=== PATIENT | male | born 1985 | race Caucasian/White ===

== ENCOUNTER 2023-04-02 05:31 | Inpatient (IN) | payer SELFPAY ==
[2023-04-02] MEDS: Ondansetron 4 MG/2 ML SDV ONE (06:05)
[2023-04-02] MEDS: Sodium Chloride 0.9% 1,000 ML IV ONE (06:12)
[2023-04-02] MEDS: Pantoprazole 40 MG in Sodium Chloride 0.9% 100 ML IV ONE (06:18)
[2023-04-02 06:34] LABS: BASOPHILS PERCENT AUTO 0.1 % (0.0-1.0); EOSINOPHILS PERCENT AUTO 0.3 % (0.0-6.0); HEMATOCRIT 37.1 % (42.0-52.0); HEMOGLOBIN 13.5 gm/dl (14.0-18.0); IMMATURE GRAN ABSOLUTE AUTO 0.11 K/mm3 (0.00-0.05); IMMATURE GRAN PERCENT AUTO 1.3 % (0.0-0.4); LYMPHOCYTES PERCENT AUTO 11.9 % (24.0-44.0); MEAN CORPUSCULAR HEMOGLOBIN 29.7 pg (28.0-32.0); MEAN CORPUSCULAR HGB CONC 36.4 g/dl (32.0-36.0); MEAN CORPUSCULAR VOLUME 81.5 fl (83.0-99.0); MEAN PLATELET VOLUME 12.3 fl (9.4-12.4); MONOCYTES ABSOLUTE AUTO 0.8 K/mm3 (0.0-0.8); NEUTROPHILS ABSOLUTE AUTO 6.7 K/mm3 (1.8-7.7); NEUTROPHILS PERCENT AUTO 77.4 % (41.0-71.0); NRBC ABSOLUTE 0.04 (0.00-0.02); NRBC PERCENT 0.5 % (0.0-0.2); PLATELET COUNT,PLT 87 K/mm3 (150-400); RED BLOOD CELL COUNT 4.55 M/mm3 (4.52-5.90); WHITE BLOOD CELL COUNT,WBC 8.71 K/mm3 (3.9-11.3)
[2023-04-02 06:42] LABS: INR 1.06; PROTHROMBIN TIME 11.3 SECONDS (9.7-12.0)
[2023-04-02 06:44] LABS: PTT,PARTIAL THROMBOPLSTIN TIME 23.4 SECONDS (21.7-31.4)
[2023-04-02 06:49] LABS: ALANINE AMINOTRANSFERASE,ALT 120 U/L (16-63); ALBUMIN 4.2 g/dl (3.4-5.0); ALKALINE PHOSPHATASE 126 U/L (46-116); ANION GAP 21.5 (5-15); ASPARTATE AMNIOTRANSFERASE,AST 151 U/L (15-37); BILIRUBIN TOTAL 2.2 mg/dL (0.2-1.0); BLOOD UREA NITROGEN,BUN 19 mg/dL (7-18); BUN/CREATININE RATIO 14.6 (14-18); CALCIUM 9.3 mg/dL (8.5-10.1); CARBON DIOXIDE,CO2 27 mEq/L (21-32); CHLORIDE,CL 83 mEq/L (98-107); CREATININE 1.3 mg/dL (0.7-1.3); ESTIMATED GFR 73 mL/min (>60); GLUCOSE RANDOM 113 mg/dL (70-99); MAGNESIUM 1.1 mg/dL (1.8-2.4); PROTEIN TOTAL,TP 8.6 g/dl (6.4-8.2); SODIUM,NA 129 mEq/L (136-145)
[2023-04-02 07:03] LABS: POTASSIUM,K 2.5 mEq/L (3.5-5.1)
[2023-04-02 07:09] LABS: APPEARANCE,URINE SLT CLOUDY (Clear); BILIRUBIN,URINE 2+ (Negative); COLOR,URINE ORANGE (Yellow); GLUCOSE,URINE NEGATIVE (Negative); KETONES,URINE 2+ (Negative); LEUKOCYTE ESTERASE,URINE NEGATIVE (Negative); NITRITE,URINE NEGATIVE (Negative); OCCULT BLOOD,URINE TRACE-LYSED (Negative); PH,URINE 7.5 (5.0-8.0); PROTEIN,URINE 3+ (Negative); UROBILINOGEN,URINE >=8.0 (0.2-1.0)
[2023-04-02 07:28] LABS: AMORPHOUS SEDIMENT,URINE FEW /hpf (NOT SEEN); BACTERIA,URINE FEW /hpf (FEW); EPITHELIAL CELLS,URINE 0-5 /hpf (0-5); MUCUS,URINE MANY /hpf (FEW); WBC,URINE 0-5 /hpf (0-5)
[2023-04-02 07:29] LABS: BARBITURATE SCREEN,URINE NEGATIVE (CUTOFF=200); BENZODIAZEPINES SCREEN,URINE NEGATIVE (CUTOFF=150); BUPRENORPHINE SCREEN,URINE NEGATIVE (CUTOFF=10); METHADONE SCREEN, URINE NEGATIVE (CUT0FF=200); METHAMPHETAMINES SCREEN, URINE NEGATIVE (CUTOFF=500); OXYCODONE SCREEN,URINE NEGATIVE (CUT0FF=100); THC SCREEN,URINE 20 NG/ML NEGATIVE (CUTOFF=50)
[2023-04-02] MEDS: NS + KCl 20mEq/L 1,000 ML IV SCH (07:32)
[2023-04-02 07:33] LABS: SLIDE REVIEW ABNORMAL SMEAR
[2023-04-02] MEDS: Potassium Chloride 10 MEQ in Premix Bag 1 BAG IV STA (07:33)
[2023-04-02 07:34] LABS: AMPHETAMINES SCREEN, URINE NEGATIVE (CUTOFF=500)
[2023-04-02] MEDS: Metoclopramide 10 MG/2 ML SDV IVPUSH ONE (07:35)
[2023-04-02] MEDS: LORazepam 2 MG/ML SDV IVPUSH ONE (07:57)
[2023-04-02] MEDS: Magnesium Sulfate/Water 2 GM in Premix Bag 1 BAG IV ONE (08:50)
[2023-04-02] MEDS: chlordiazePOXIDE 10 MG Cap PO ONE (08:50)
[2023-04-02] MEDS: diphenhydrAMINE 50 MG/ML SDV IVPUSH ONE (09:27)
[2023-04-02] MEDS ORDERED: Lactated Ringers 1,000 ML IV SCH (10:00)
[2023-04-02 10:29] LABS: MAGNESIUM 1.4 mg/dL (1.8-2.4); PHOSPHORUS 1.9 mg/dL (2.6-4.7)
[2023-04-02] MEDS ORDERED: 50% Dextrose in Water 50 ML Syringe IVPUSH PRN (11:54)
[2023-04-02] MEDS ORDERED: Glucagon,Human Recombinant 1 MG Vial IM PRN (11:54)
[2023-04-02] MEDS: Ondansetron 4 MG/2 ML SDV IV PRN (13:09)
[2023-04-02] MEDS: Phosphorus #1 250 MG Tab PO ONE (13:10)
[2023-04-02] MEDS: chlordiazePOXIDE 25 MG Cap PO SCH ×2 (13:10→16:02)
[2023-04-02] MEDS: Pantoprazole 40 MG Tab.CR PO SCH (13:14)
[2023-04-02] MEDS: LORazepam 2 MG/ML SDV IV PRN (16:03)
[2023-04-02 16:12] LABS: HEMATOCRIT 28.9 % (42.0-52.0); HEMOGLOBIN 10.1 gm/dl (14.0-18.0)
[2023-04-02] MEDS: Acetaminophen 325 MG Tab PO PRN (18:09)
[2023-04-02] MEDS: Insulin Lispro 100 Unit/ML 3 ML KwikPen SUBCUT SCH (19:28)
[2023-04-03 00:33] LABS: HEMATOCRIT 27.6 % (42.0-52.0); HEMOGLOBIN 9.4 gm/dl (14.0-18.0)
[2023-04-03] MEDS: traZODone 50 MG Tab PO ONE (01:32)
[2023-04-03] MEDS: Sodium Chloride 0.9% 1,000 ML IV SCH (04:19)
[2023-04-03 06:17] LABS: BASOPHILS PERCENT AUTO 0.2 % (0.0-1.0); EOSINOPHILS PERCENT AUTO 0.9 % (0.0-6.0); HEMATOCRIT 27.4 % (42.0-52.0); HEMOGLOBIN 9.6 gm/dl (14.0-18.0); IMMATURE GRAN ABSOLUTE AUTO 0.05 K/mm3 (0.00-0.05); IMMATURE GRAN PERCENT AUTO 1.2 % (0.0-0.4); LYMPHOCYTES ABSOLUTE AUTO 1.5 K/mm3 (1.0-4.8); LYMPHOCYTES PERCENT AUTO 35.5 % (24.0-44.0); MEAN CORPUSCULAR HEMOGLOBIN 29.4 pg (28.0-32.0); MEAN CORPUSCULAR VOLUME 83.8 fl (83.0-99.0); MEAN PLATELET VOLUME 11.2 fl (9.4-12.4); MONOCYTES ABSOLUTE AUTO 0.4 K/mm3 (0.0-0.8); MONOCYTES PERCENT AUTO 10.4 % (0.0-8.0); NEUTROPHILS ABSOLUTE AUTO 2.2 K/mm3 (1.8-7.7); NEUTROPHILS PERCENT AUTO 51.8 % (41.0-71.0); NRBC ABSOLUTE 0.02 (0.00-0.02); NRBC PERCENT 0.5 % (0.0-0.2); PLATELET COUNT,PLT 70 K/mm3 (150-400); RED BLOOD CELL COUNT 3.27 M/mm3 (4.52-5.90); WHITE BLOOD CELL COUNT,WBC 4.25 K/mm3 (3.9-11.3)
[2023-04-03 06:22] LABS: ALBUMIN 3.3 g/dl (3.4-5.0); ANION GAP 13.9 (5-15); BILIRUBIN TOTAL 1.1 mg/dL (0.2-1.0); BUN/CREATININE RATIO 11.5 (14-18); CALCIUM 8.2 mg/dL (8.5-10.1); CREATININE 1.3 mg/dL (0.7-1.3); EST CRCL DRUG DOSING (CG) 87.05 mL/min; POTASSIUM,K 2.9 mEq/L (3.5-5.1); PROTEIN TOTAL,TP 6.6 g/dl (6.4-8.2)
[2023-04-03 07:10] LABS: SLIDE REVIEW ABNORMAL SMEAR
[2023-04-03] MEDS: Potassium Chloride 10 MEQ in Premix Bag 1 BAG IV ONE ×2 (09:30→10:36)
[2023-04-03] MEDS: Folic Acid 1 MG Tab PO SCH (09:31)
[2023-04-03] MEDS: Ondansetron 4 MG Tab.DIS PO PRN (09:32)
[2023-04-03] MEDS: Thiamine 100 MG Tab PO SCH (09:32)
[2023-04-03] MEDS: LORazepam 1 MG Tab PO PRN (09:32)
[2023-04-03] MEDS: chlordiazePOXIDE 25 MG Cap PO SCH (15:55)
[2023-04-04] MEDS: Lisinopril 10 MG Tab PO SCH (08:58)
[2023-04-04 09:28] LABS: BASOPHILS PERCENT AUTO 0.8 % (0.0-1.0); EOSINOPHILS ABSOLUTE AUTO 0.1 K/mm3 (0.0-0.4); EOSINOPHILS PERCENT AUTO 2.8 % (0.0-6.0); HEMATOCRIT 26.9 % (42.0-52.0); HEMOGLOBIN 8.8 gm/dl (14.0-18.0); IMMATURE GRAN ABSOLUTE AUTO 0.09 K/mm3 (0.00-0.05); IMMATURE GRAN PERCENT AUTO 2.3 % (0.0-0.4); LYMPHOCYTES ABSOLUTE AUTO 1.3 K/mm3 (1.0-4.8); LYMPHOCYTES PERCENT AUTO 31.7 % (24.0-44.0); MEAN CORPUSCULAR HEMOGLOBIN 28.9 pg (28.0-32.0); MEAN CORPUSCULAR HGB CONC 32.7 g/dl (32.0-36.0); MEAN CORPUSCULAR VOLUME 88.5 fl (83.0-99.0); MONOCYTES ABSOLUTE AUTO 0.6 K/mm3 (0.0-0.8); MONOCYTES PERCENT AUTO 14.6 % (0.0-8.0); NEUTROPHILS ABSOLUTE AUTO 1.9 K/mm3 (1.8-7.7); NEUTROPHILS PERCENT AUTO 47.8 % (41.0-71.0); NRBC ABSOLUTE 0.02 (0.00-0.02); NRBC PERCENT 0.5 % (0.0-0.2); PLATELET COUNT,PLT 100 K/mm3 (150-400); RED BLOOD CELL COUNT 3.04 M/mm3 (4.52-5.90); WHITE BLOOD CELL COUNT,WBC 3.98 K/mm3 (3.9-11.3)
[2023-04-04 09:46] LABS: ANION GAP 13.6 (5-15); BUN/CREATININE RATIO 8.2 (14-18); CALCIUM 9.2 mg/dL (8.5-10.1); CREATININE 1.1 mg/dL (0.7-1.3); EST CRCL DRUG DOSING (CG) 102.88 mL/min; POTASSIUM,K 3.6 mEq/L (3.5-5.1)
[2023-04-04] MEDS: Potassium Chloride 10 MEQ in Premix Bag 1 BAG IV SCH (10:33)
[2023-04-04] MEDS: chlordiazePOXIDE 25 MG Cap PO SCH (12:09)
[2023-04-04] MEDS: QUEtiapine 100 MG Tab PO SCH (13:30)
[2023-04-04] MEDS: Venlafaxine 75 MG Cap.ER PO SCH (13:31)
[2023-04-04 14:28] LABS: CREATININE,URINE RAND 14.8 mg/dL (30.0-125.0)
[2023-04-04 14:29] LABS: PROTEIN,URINE RANDOM < 6.0 mg/dL (0.0-11.8)
[2023-04-04] MEDS: Hydrochlorothiazide 12.5 MG Cap PO SCH (21:04)
[2023-04-05 05:37] LABS: BASOPHILS PERCENT AUTO 0.8 % (0.0-1.0); EOSINOPHILS ABSOLUTE AUTO 0.1 K/mm3 (0.0-0.4); EOSINOPHILS PERCENT AUTO 3.1 % (0.0-6.0); HEMATOCRIT 27.4 % (42.0-52.0); HEMOGLOBIN 9.1 gm/dl (14.0-18.0); IMMATURE GRAN ABSOLUTE AUTO 0.08 K/mm3 (0.00-0.05); IMMATURE GRAN PERCENT AUTO 2.2 % (0.0-0.4); LYMPHOCYTES ABSOLUTE AUTO 1.5 K/mm3 (1.0-4.8); LYMPHOCYTES PERCENT AUTO 43.3 % (24.0-44.0); MEAN CORPUSCULAR HEMOGLOBIN 28.5 pg (28.0-32.0); MEAN CORPUSCULAR HGB CONC 33.2 g/dl (32.0-36.0); MEAN CORPUSCULAR VOLUME 85.9 fl (83.0-99.0); MEAN PLATELET VOLUME 9.8 fl (9.4-12.4); MONOCYTES ABSOLUTE AUTO 0.6 K/mm3 (0.0-0.8); NEUTROPHILS ABSOLUTE AUTO 1.2 K/mm3 (1.8-7.7); NEUTROPHILS PERCENT AUTO 34.6 % (41.0-71.0); PLATELET COUNT,PLT 132 K/mm3 (150-400); RED BLOOD CELL COUNT 3.19 M/mm3 (4.52-5.90); WHITE BLOOD CELL COUNT,WBC 3.56 K/mm3 (3.9-11.3)
[2023-04-05 06:07] LABS: ANION GAP 14.1 (5-15); EST CRCL DRUG DOSING (CG) 113.17 mL/min; POTASSIUM,K 3.1 mEq/L (3.5-5.1)
[2023-04-05] MEDS: Potassium Chloride 20 MEQ Tab.ER PO SCH (08:19)
[2023-04-05] MEDS: Magnesium Oxide 400 MG Tab PO ONE (13:18)
[2023-04-05] MEDS ORDERED: chlordiazePOXIDE 25 MG Cap PO SCH (21:00)
== END 2023-04-05 13:30 | disposition home or self-care (01) | DRG 897 ==
LOC: JD.ED 05:31 → JD.ICU 09:50 → JD.ED 11:42
PROVIDERS: ADMIT Student in an Organized Health Care Education/Training Program; ATTEND Internal Medicine
DX: F10.239 Alcohol dependence with withdrawal, unspecified (principal); K92.0 Hematemesis; E87.1 Hypo-osmolality and hyponatremia; E87.3 Alkalosis; N17.9 Acute kidney failure, unspecified; E11.9 Type 2 diabetes mellitus without complications; F32.A Depression, unspecified; E87.8 Other disorders of electrolyte and fluid balance, not elsewhere classified; E87.6 Hypokalemia; E83.42 Hypomagnesemia; D69.6 Thrombocytopenia, unspecified; F41.9 Anxiety disorder, unspecified; I10 Essential (primary) hypertension; E83.39 Other disorders of phosphorus metabolism; K29.20 Alcoholic gastritis without bleeding; Z79.4 Long term (current) use of insulin; Z79.899 Other long term (current) drug therapy; Z79.84 Long term (current) use of oral hypoglycemic drugs
CPT/HCPCS: 36415; 76705; 76705-26; 80048; 80053; 80306; 80307; 81001; 82570; 82947; 83735; 84100; 84132; 84156; 85014; 85018; 85025; 85610; 85652; 85730; 86140; 86430; 86850; 86900; 86901; 93970; 93970-26; 96361; 96365; 96366; 96367; 96368; 96375; 97162-GP; 99285-25; A9270-GY; C9113; J1200; J2060; J2405; J2765; J3475; J3480; J3490; J7030

== ENCOUNTER 2023-04-11 06:22 | Inpatient (IN) | payer OTHER ==
[2023-04-11 07:48] LABS: APPEARANCE,URINE CLEAR (Clear); BILIRUBIN,URINE NEGATIVE (Negative); COLOR,URINE YELLOW (Yellow); GLUCOSE,URINE NEGATIVE (Negative); KETONES,URINE NEGATIVE (Negative); LEUKOCYTE ESTERASE,URINE NEGATIVE (Negative); NITRITE,URINE NEGATIVE (Negative); OCCULT BLOOD,URINE NEGATIVE (Negative); PH,URINE 7.5 (5.0-8.0); PROTEIN,URINE TRACE (Negative)
[2023-04-11] MEDS: Sodium Chloride 0.9% 1,000 ML IV ONE (07:52)
[2023-04-11] MEDS: Pantoprazole 40 MG Vial IVPUSH ONE (07:52)
[2023-04-11] MEDS: Ondansetron 4 MG/2 ML SDV IVPUSH ONE (07:53)
[2023-04-11 07:55] LABS: INR 0.97; PROTHROMBIN TIME 10.4 SECONDS (9.7-12.0)
[2023-04-11 07:57] LABS: A/G RATIO 1.1 (1-2); ALANINE AMINOTRANSFERASE,ALT 145 U/L (16-63); ALBUMIN 4.3 g/dl (3.4-5.0); ALKALINE PHOSPHATASE 115 U/L (46-116); ANION GAP 19.4 (5-15); ASPARTATE AMNIOTRANSFERASE,AST 65 U/L (15-37); BILIRUBIN TOTAL 0.7 mg/dL (0.2-1.0); BLOOD UREA NITROGEN,BUN 9 mg/dL (7-18); BUN/CREATININE RATIO 7.5 (14-18); CALCIUM 9.1 mg/dL (8.5-10.1); CARBON DIOXIDE,CO2 25 mEq/L (21-32); CREATININE 1.2 mg/dL (0.7-1.3); ESTIMATED GFR 81 mL/min (>60); GLUCOSE RANDOM 78 mg/dL (70-99); MAGNESIUM 0.9 mg/dL (1.8-2.4); POTASSIUM,K 3.4 mEq/L (3.5-5.1); PROTEIN TOTAL,TP 8.3 g/dl (6.4-8.2); PTT,PARTIAL THROMBOPLSTIN TIME < 20.0 SECONDS (21.7-31.4)
[2023-04-11 07:58] LABS: BARBITURATE SCREEN,URINE NEGATIVE (CUTOFF=200); BENZODIAZEPINES SCREEN,URINE PRESUMPTIVE POSITIVE (CUTOFF=150); BUPRENORPHINE SCREEN,URINE NEGATIVE (CUTOFF=10); METHADONE SCREEN, URINE NEGATIVE (CUT0FF=200); METHAMPHETAMINES SCREEN, URINE NEGATIVE (CUTOFF=500); OXYCODONE SCREEN,URINE NEGATIVE (CUT0FF=100); THC SCREEN,URINE 20 NG/ML NEGATIVE (CUTOFF=50)
[2023-04-11 08:06] LABS: AMPHETAMINES SCREEN, URINE NEGATIVE (CUTOFF=500); BACTERIA,URINE RARE /hpf (FEW); EPITHELIAL CELLS,URINE 0-5 /hpf (0-5); MUCUS,URINE RARE /hpf (FEW); RBC,URINE 0-5 /hpf (0-5); WBC,URINE 0-5 /hpf (0-5)
[2023-04-11 08:08] LABS: CHLORIDE,CL 93 mEq/L (98-107); SODIUM,NA 134 mEq/L (136-145)
[2023-04-11 08:43] LABS: BASOPHILS ABSOLUTE AUTO 0.1 K/mm3 (0.0-0.2); BASOPHILS PERCENT AUTO 1.2 % (0.0-1.0); HEMATOCRIT 29.6 % (42.0-52.0); HEMOGLOBIN 10.2 gm/dl (14.0-18.0); IMMATURE GRAN ABSOLUTE AUTO 0.03 K/mm3 (0.00-0.05); IMMATURE GRAN PERCENT AUTO 0.5 % (0.0-0.4); LYMPHOCYTES ABSOLUTE AUTO 0.8 K/mm3 (1.0-4.8); LYMPHOCYTES PERCENT AUTO 11.6 % (24.0-44.0); MEAN CORPUSCULAR HGB CONC 34.5 g/dl (32.0-36.0); MEAN PLATELET VOLUME 8.6 fl (9.4-12.4); MONOCYTES ABSOLUTE AUTO 1.6 K/mm3 (0.0-0.8); MONOCYTES PERCENT AUTO 24.1 % (0.0-8.0); NEUTROPHILS PERCENT AUTO 62.6 % (41.0-71.0); RED BLOOD CELL COUNT 3.52 M/mm3 (4.52-5.90); WHITE BLOOD CELL COUNT,WBC 6.46 K/mm3 (3.9-11.3)
[2023-04-11 08:45] LABS: MEAN CORPUSCULAR VOLUME 84.1 fl (83.0-99.0); PLATELET COUNT,PLT 420 K/mm3 (150-400)
[2023-04-11 09:12] LABS: SLIDE REVIEW ABNORMAL SMEAR
[2023-04-11] MEDS: Magnesium Sulfate/Water 2 GM in Premix Bag 1 BAG IV ONE (09:55)
[2023-04-11] MEDS ORDERED: LORazepam 2 MG/ML SDV IVPUSH PRN ×2 (10:17→17:46)
[2023-04-11] MEDS ORDERED: Magnesium Sulfate (4.06 MEQ/ML) 5 GM/10 ML SDV IV ONE (10:20)
[2023-04-11] MEDS ORDERED: 50% Dextrose in Water 50 ML Syringe IVPUSH PRN (10:41)
[2023-04-11] MEDS ORDERED: Glucagon,Human Recombinant 1 MG Vial IM PRN (10:41)
[2023-04-11] MEDS: Lactated Ringers 1,000 ML IV SCH (12:36)
[2023-04-11] MEDS: Magnesium Sulfate/Water 2 GM in Premix Bag 1 BAG IV SCH (12:36)
[2023-04-11] MEDS: Potassium Chloride 20 MEQ Tab.ER PO ONE (12:36)
[2023-04-11] MEDS: Ondansetron 4 MG/2 ML SDV IV PRN (12:36)
[2023-04-11] MEDS: Insulin Lispro 100 Unit/ML 3 ML KwikPen SUBCUT SCH (12:39)
[2023-04-11] MEDS: Acetaminophen 325 MG Tab PO PRN (13:56)
[2023-04-11] MEDS: chlordiazePOXIDE 25 MG Cap PO SCH (14:00)
[2023-04-11] MEDS: LORazepam 0.5 MG Tab PO ONE (15:55)
[2023-04-11] MEDS: Insulin Glargine,Human Rec. Analog 100 Units/ML 3 ML Pen SUBCUT SCH (22:40)
[2023-04-12 06:33] LABS: BASOPHILS ABSOLUTE AUTO 0.1 K/mm3 (0.0-0.2); BASOPHILS PERCENT AUTO 1.5 % (0.0-1.0); EOSINOPHILS ABSOLUTE AUTO 0.1 K/mm3 (0.0-0.4); HEMOGLOBIN 10.5 gm/dl (14.0-18.0); IMMATURE GRAN ABSOLUTE AUTO 0.01 K/mm3 (0.00-0.05); IMMATURE GRAN PERCENT AUTO 0.2 % (0.0-0.4); LYMPHOCYTES ABSOLUTE AUTO 1.2 K/mm3 (1.0-4.8); MEAN CORPUSCULAR HEMOGLOBIN 28.4 pg (28.0-32.0); MEAN CORPUSCULAR HGB CONC 31.8 g/dl (32.0-36.0); MEAN CORPUSCULAR VOLUME 89.2 fl (83.0-99.0); MEAN PLATELET VOLUME 8.7 fl (9.4-12.4); MONOCYTES ABSOLUTE AUTO 0.6 K/mm3 (0.0-0.8); MONOCYTES PERCENT AUTO 13.3 % (0.0-8.0); NEUTROPHILS ABSOLUTE AUTO 2.8 K/mm3 (1.8-7.7); PLATELET COUNT,PLT 435 K/mm3 (150-400)
[2023-04-12 07:04] LABS: INR 0.96; PROTHROMBIN TIME 10.3 SECONDS (9.7-12.0)
[2023-04-12 07:05] LABS: ALBUMIN 3.8 g/dl (3.4-5.0); ANION GAP 15.7 (5-15); BILIRUBIN TOTAL 0.7 mg/dL (0.2-1.0); CALCIUM 9.3 mg/dL (8.5-10.1); CREATININE 1.2 mg/dL (0.7-1.3); EST CRCL DRUG DOSING (CG) 94.31 mL/min; MAGNESIUM 1.9 mg/dL (1.8-2.4); POTASSIUM,K 4.7 mEq/L (3.5-5.1); PROTEIN TOTAL,TP 7.5 g/dl (6.4-8.2)
[2023-04-12] MEDS: Pantoprazole 40 MG Tab.CR PO SCH (08:03)
[2023-04-12] MEDS: QUEtiapine 100 MG Tab PO SCH (08:03)
[2023-04-12] MEDS: Thiamine 100 MG Tab PO SCH (08:03)
[2023-04-12] MEDS: Venlafaxine 75 MG Cap.ER PO SCH (08:03)
[2023-04-12] MEDS: Hydrochlorothiazide 12.5 MG Cap PO SCH (09:10)
[2023-04-12] MEDS: Lisinopril 10 MG Tab PO SCH (09:10)
[2023-04-12] MEDS: Sennosides/Docusate Sodium 50-8.6 MG Tab PO SCH (15:23)
[2023-04-12] MEDS: Gabapentin 100 MG Cap PO SCH (15:36)
[2023-04-12] MEDS: LORazepam 1 MG Tab PO PRN (16:10)
[2023-04-12] MEDS: Cholecalciferol (Vitamin D3) 25 MCG Tab PO SCH (20:34)
[2023-04-12] MEDS: Vitamin B6-pyridOXINE 50 MG Tab PO SCH (20:34)
[2023-04-12] MEDS: Magnesium Oxide 400 MG Tab PO SCH (20:34)
[2023-04-12] MEDS: chlordiazePOXIDE 25 MG Cap PO SCH (20:34)
[2023-04-12] MEDS: Cyanocobalamin (Vitamin B12) 1,000 MCG Tab PO SCH (20:34)
[2023-04-13 05:22] LABS: INR 0.95; PROTHROMBIN TIME 10.2 SECONDS (9.7-12.0)
[2023-04-13 05:35] LABS: BASOPHILS ABSOLUTE AUTO 0.1 K/mm3 (0.0-0.2); BASOPHILS PERCENT AUTO 1.8 % (0.0-1.0); EOSINOPHILS ABSOLUTE AUTO 0.1 K/mm3 (0.0-0.4); HEMATOCRIT 28.4 % (42.0-52.0); HEMOGLOBIN 9.1 gm/dl (14.0-18.0); IMMATURE GRAN ABSOLUTE AUTO 0.03 K/mm3 (0.00-0.05); IMMATURE GRAN PERCENT AUTO 0.8 % (0.0-0.4); LYMPHOCYTES ABSOLUTE AUTO 1.3 K/mm3 (1.0-4.8); MEAN CORPUSCULAR HEMOGLOBIN 28.3 pg (28.0-32.0); MEAN CORPUSCULAR VOLUME 88.5 fl (83.0-99.0); MEAN PLATELET VOLUME 9.7 fl (9.4-12.4); MONOCYTES ABSOLUTE AUTO 0.5 K/mm3 (0.0-0.8); MONOCYTES PERCENT AUTO 13.8 % (0.0-8.0); NEUTROPHILS ABSOLUTE AUTO 1.9 K/mm3 (1.8-7.7); NEUTROPHILS PERCENT AUTO 49.6 % (41.0-71.0); PLATELET COUNT,PLT 349 K/mm3 (150-400); RED BLOOD CELL COUNT 3.21 M/mm3 (4.52-5.90); WHITE BLOOD CELL COUNT,WBC 3.91 K/mm3 (3.9-11.3)
[2023-04-13 05:43] LABS: ALBUMIN 3.3 g/dl (3.4-5.0); ANION GAP 14.9 (5-15); BILIRUBIN TOTAL 0.4 mg/dL (0.2-1.0); BUN/CREATININE RATIO 8.2 (14-18); CALCIUM 9.2 mg/dL (8.5-10.1); CREATININE 1.1 mg/dL (0.7-1.3); EST CRCL DRUG DOSING (CG) 102.88 mL/min; MAGNESIUM 1.5 mg/dL (1.8-2.4); POTASSIUM,K 3.9 mEq/L (3.5-5.1); PROTEIN TOTAL,TP 6.7 g/dl (6.4-8.2)
[2023-04-13] MEDS: Magnesium Sulfate/Water 2 GM in Premix Bag 1 BAG IV ONE (07:54)
[2023-04-13] MEDS: Folic Acid 1 MG Tab PO SCH (07:57)
[2023-04-13] MEDS ORDERED: QUEtiapine 100 MG Tab PO SCH (21:00)
[2023-04-14] MEDS ORDERED: chlordiazePOXIDE 25 MG Cap PO SCH (09:00)
== END 2023-04-13 13:31 | disposition home or self-care (01) | DRG 897 ==
LOC: JD.ED 06:22 → JD.MS 09:58 → OBSVTOIN 04-12 19:27
PROVIDERS: ADMIT Student in an Organized Health Care Education/Training Program; ATTEND Student in an Organized Health Care Education/Training Program
DX: F10.230 Alcohol dependence with withdrawal, uncomplicated (principal); F32.2 Major depressive disorder, single episode, severe without psychotic features; E87.1 Hypo-osmolality and hyponatremia; E83.42 Hypomagnesemia; K70.10 Alcoholic hepatitis without ascites; R53.1 Weakness; I10 Essential (primary) hypertension; F41.9 Anxiety disorder, unspecified; F32.A Depression, unspecified; E10.9 Type 1 diabetes mellitus without complications; K21.9 Gastro-esophageal reflux disease without esophagitis; F43.10 Post-traumatic stress disorder, unspecified; E87.6 Hypokalemia; D75.839 Thrombocytosis, unspecified; R79.89 Other specified abnormal findings of blood chemistry; G47.33 Obstructive sleep apnea (adult) (pediatric); Z79.4 Long term (current) use of insulin; Z79.84 Long term (current) use of oral hypoglycemic drugs; Z79.899 Other long term (current) drug therapy; Z87.81 Personal history of (healed) traumatic fracture; Z90.49 Acquired absence of other specified parts of digestive tract
CPT/HCPCS: 36415; 80053; 80306; 80307; 81001; 82947; 83735; 84100; 85025; 85610; 85730; 90792-GT; 93005; A9270-GY; C9113; J1815; J1815-GY; J2405; J3475; J7030; J7120; Q3014

== ENCOUNTER 2023-07-21 13:33 | Inpatient (IN) | payer BC, OTHER ==
[2023-07-21 14:10] LABS: HEMATOCRIT 37.7 % (42.0-52.0); HEMOGLOBIN 11.4 gm/dl (14.0-18.0); MEAN CORPUSCULAR HEMOGLOBIN 22.1 pg (28.0-32.0); MEAN CORPUSCULAR HGB CONC 30.2 g/dl (32.0-36.0); MEAN CORPUSCULAR VOLUME 72.9 fl (83.0-99.0); MEAN PLATELET VOLUME 8.9 fl (9.4-12.4); PLATELET COUNT,PLT 283 K/mm3 (150-400); RED BLOOD CELL COUNT 5.17 M/mm3 (4.52-5.90); WHITE BLOOD CELL COUNT,WBC 4.64 K/mm3 (3.9-11.3)
[2023-07-21] MEDS: LORazepam 2 MG/ML SDV IVPUSH ONE ×2 (14:26→17:25)
[2023-07-21] MEDS: Ondansetron 4 MG/2 ML SDV IVPUSH ONE (14:27)
[2023-07-21] MEDS: Sodium Chloride 0.9% 1,000 ML IV STA ×3 (14:28→16:41)
[2023-07-21] MEDS: Sodium Chloride 0.9% 10 ML Syringe FLUSH PRN (14:28)
[2023-07-21 14:33] LABS: ANISOCYTOSIS 1+ SLIGHT; BAND PERCENT MAN 0 % (0-10); BASOPHILS PERCENT MAN 1 (0.2-1.2); EOSINOPHILS PERCENT MAN 0 % (0.8-7.0); LYMPHOCYTES % ATYPICAL MANUAL 0 %; LYMPHOCYTES PERCENT MAN 8 % (20-40); MICROCYTOSIS 1+ SLIGHT; MONOCYTES PERCENT MAN 5 % (2-10); OVALOCYTES 1+ SLIGHT; PLATELET COUNT ESTIMATE ADEQUATE
[2023-07-21 14:42] LABS: ANION GAP 23.4 (5-15); BILIRUBIN TOTAL 0.3 mg/dL (0.2-1.0); BUN/CREATININE RATIO 7.5 (14-18); CALCIUM 9.5 mg/dL (8.5-10.1); CREATININE 1.6 mg/dL (0.7-1.3); EST CRCL DRUG DOSING (CG) 70.73 mL/min; ETHANOL BLOOD MEDICAL 0.17 gm% (0.00); POTASSIUM,K 3.4 mEq/L (3.5-5.1); PROTEIN TOTAL,TP 8.1 g/dl (6.4-8.2); TSH 0.826 uIU/mL (0.358-3.74)
[2023-07-21 15:23] LABS: BASE EXCESS VENOUS -4.5 (-4.0-2.0); BICARBONATE,VENOUS 18.3 meq/L (22-26); O2 SATURATION VENOUS 86.4; PCO2 VENOUS 27.6 mmHg (41-51); PH,VENOUS 7.44 (7.30-7.40)
[2023-07-21 16:32] LABS: APPEARANCE,URINE CLEAR (Clear); BILIRUBIN,URINE 1+ (Negative); COLOR,URINE YELLOW (Yellow); GLUCOSE,URINE NEGATIVE (Negative); KETONES,URINE 2+ (Negative); LEUKOCYTE ESTERASE,URINE NEGATIVE (Negative); NITRITE,URINE NEGATIVE (Negative); OCCULT BLOOD,URINE TRACE-INTACT (Negative); PROTEIN,URINE 3+ (Negative); UROBILINOGEN,URINE 0.2 (0.2-1.0)
[2023-07-21 16:54] LABS: BACTERIA,URINE MODERATE /hpf (FEW); MUCUS,URINE FEW /hpf (FEW); RBC,URINE 0-5 /hpf (0-5); SQUAMOUS EPITHELIAL CELLS,UR 0-5 /hpf (0-5); WBC,URINE 0-5 /hpf (0-5)
[2023-07-21 16:59] LABS: AMPHETAMINES SCREEN, URINE PRESUMPTIVE POSITIVE (CUTOFF=500); BARBITURATE SCREEN,URINE NEGATIVE (CUTOFF=200); BENZODIAZEPINES SCREEN,URINE NEGATIVE (CUTOFF=150); BUPRENORPHINE SCREEN,URINE NEGATIVE (CUTOFF=10); METHADONE SCREEN, URINE NEGATIVE (CUT0FF=200); METHAMPHETAMINES SCREEN, URINE NEGATIVE (CUTOFF=500); OXYCODONE SCREEN,URINE NEGATIVE (CUT0FF=100); THC SCREEN,URINE 20 NG/ML NEGATIVE (CUTOFF=50)
[2023-07-21] MEDS: Aluminum Hydroxide/Magnesium Hydroxide/Simethicone Susp 30 ML Cup PO ONE (17:25)
[2023-07-21] MEDS: Thiamine 100 MG in Sodium Chloride 0.9% 100 ML IV ONE (18:24)
[2023-07-21] MEDS: Magnesium Sulfate/Water 4 GM in Premix Bag 1 BAG IV ONE (18:30)
[2023-07-21] MEDS: Ondansetron 4 MG/2 ML SDV IV PRN (18:32)
[2023-07-21] MEDS: Pantoprazole 40 MG Vial IV SCH (18:32)
[2023-07-21] MEDS ORDERED: Calcium Carbonate 500 MG Tab.Chew PO PRN (18:55)
[2023-07-21] MEDS: Sodium Chloride 0.9% 1,000 ML IV SCH (20:08)
[2023-07-21] MEDS: LORazepam 2 MG/ML SDV IV SCH (20:19)
[2023-07-21] MEDS: Insulin Lispro 100 Unit/ML 3 ML KwikPen SUBCUT SCH (21:21)
[2023-07-21] MEDS: Gabapentin 100 MG Cap PO SCH (21:21)
[2023-07-21] MEDS: Insulin Glargine,Human Rec. Analog 100 Units/ML 3 ML Pen SUBCUT SCH (21:22)
[2023-07-21] MEDS: LORazepam 1 MG Tab PO PRN (23:56)
[2023-07-22 05:46] LABS: HEMATOCRIT 30.9 % (42.0-52.0); HEMOGLOBIN 9.2 gm/dl (14.0-18.0); MEAN CORPUSCULAR HEMOGLOBIN 21.8 pg (28.0-32.0); MEAN CORPUSCULAR HGB CONC 29.8 g/dl (32.0-36.0); MEAN CORPUSCULAR VOLUME 73.2 fl (83.0-99.0); MEAN PLATELET VOLUME 8.8 fl (9.4-12.4); PLATELET COUNT,PLT 243 K/mm3 (150-400); RED BLOOD CELL COUNT 4.22 M/mm3 (4.52-5.90); WHITE BLOOD CELL COUNT,WBC 4.55 K/mm3 (3.9-11.3)
[2023-07-22 05:57] LABS: ALBUMIN 3.1 g/dl (3.4-5.0); ANION GAP 11.2 (5-15); BILIRUBIN TOTAL 0.5 mg/dL (0.2-1.0); BUN/CREATININE RATIO 7.9 (14-18); CALCIUM 8.3 mg/dL (8.5-10.1); CREATININE 1.4 mg/dL (0.7-1.3); EST CRCL DRUG DOSING (CG) 80.83 mL/min; MAGNESIUM 1.8 mg/dL (1.8-2.4); POTASSIUM,K 3.2 mEq/L (3.5-5.1); PROTEIN TOTAL,TP 6.2 g/dl (6.4-8.2)
[2023-07-22] MEDS: Potassium Chloride 20 MEQ Tab.ER PO SCH (08:21)
[2023-07-22] MEDS ORDERED: VENLAFAXINE 75 MG PO SCH (09:00)
[2023-07-22] MEDS: ARIPiprazole 10 MG Tab PO SCH (10:22)
[2023-07-22] MEDS: Venlafaxine 37.5 MG Cap.ER PO SCH (10:22)
[2023-07-22] MEDS: Insulin Glargine,Human Rec. Analog 100 Units/ML 3 ML Pen SUBCUT SCH (11:43)
[2023-07-22] MEDS ORDERED: hydrALAZINE 20 MG/ML SDV IVPUSH PRN (15:58)
[2023-07-22] MEDS: amLODIPine 5 MG Tab PO ONE (16:15)
[2023-07-22] MEDS: Acetaminophen 325 MG Tab PO PRN (16:19)
[2023-07-22] MEDS: Thiamine 100 MG Tab PO SCH (20:28)
[2023-07-23 06:16] LABS: HEMATOCRIT 33.3 % (42.0-52.0); HEMOGLOBIN 9.8 gm/dl (14.0-18.0); MEAN CORPUSCULAR HEMOGLOBIN 22.2 pg (28.0-32.0); MEAN CORPUSCULAR HGB CONC 29.4 g/dl (32.0-36.0); MEAN CORPUSCULAR VOLUME 75.5 fl (83.0-99.0); MEAN PLATELET VOLUME 9.2 fl (9.4-12.4); PLATELET COUNT,PLT 227 K/mm3 (150-400); RED BLOOD CELL COUNT 4.41 M/mm3 (4.52-5.90); WHITE BLOOD CELL COUNT,WBC 4.26 K/mm3 (3.9-11.3)
[2023-07-23 06:32] LABS: A/G RATIO 0.9 (1-2); ALBUMIN 3.4 g/dl (3.4-5.0); ANION GAP 11.7 (5-15); BILIRUBIN TOTAL 0.2 mg/dL (0.2-1.0); BUN/CREATININE RATIO 6.7 (14-18); CALCIUM 8.8 mg/dL (8.5-10.1); CREATININE 1.2 mg/dL (0.7-1.3); EST CRCL DRUG DOSING (CG) 93.41 mL/min; MAGNESIUM 1.5 mg/dL (1.8-2.4); POTASSIUM,K 3.7 mEq/L (3.5-5.1)
[2023-07-23] MEDS: Magnesium Sulfate/Water 4 GM in Premix Bag 1 BAG IV ONE (06:48)
[2023-07-23] MEDS: Venlafaxine 75 MG Cap.ER PO SCH (09:07)
[2023-07-23] MEDS: amLODIPine 5 MG Tab PO SCH (09:07)
[2023-07-23] MEDS: Iron Polysaccharides Complex 150 MG Cap PO SCH (09:07)
== END 2023-07-23 10:40 | disposition home or self-care (01) | DRG 775 ==
LOC: JD.ED 13:33 → JD.ICU 17:31
PROVIDERS: ADMIT Internal Medicine; ATTEND Internal Medicine
DX: F10.280 Alcohol dependence with alcohol-induced anxiety disorder (principal); F10.221 Alcohol dependence with intoxication delirium; F10.231 Alcohol dependence with withdrawal delirium; N17.9 Acute kidney failure, unspecified; K70.10 Alcoholic hepatitis without ascites; E11.9 Type 2 diabetes mellitus without complications; I10 Essential (primary) hypertension; I95.9 Hypotension, unspecified; E86.0 Dehydration; F41.9 Anxiety disorder, unspecified; E87.6 Hypokalemia; D50.9 Iron deficiency anemia, unspecified; R74.01 Elevation of levels of liver transaminase levels; K29.50 Unspecified chronic gastritis without bleeding
CPT/HCPCS: 36415; 80053; 80143; 80179; 80306; 80307; 81001; 82728; 82803; 82947; 83540; 83735; 84443; 85007; 85027; 86850; 86900; 86901; 93005; 94761; A9270-GY; C9113; J1815; J1815-GY; J2060; J2405; J3411; J3475; J3490; J7030

== ENCOUNTER 2023-07-24 13:21 | Emergency (ER) | payer BC ==
[2023-07-24] MEDS: Lisinopril 5 MG Tab PO ONE (14:41)
[2023-07-24] MEDS: LORazepam 1 MG Tab PO ONE (14:42)
[2023-07-24 16:03] LABS: BASOPHILS PERCENT AUTO 0.5 % (0.0-1.0); EOSINOPHILS ABSOLUTE AUTO 0.1 K/mm3 (0.0-0.4); EOSINOPHILS PERCENT AUTO 0.8 % (0.0-6.0); HEMATOCRIT 39.8 % (42.0-52.0); HEMOGLOBIN 11.7 gm/dl (14.0-18.0); IMMATURE GRAN ABSOLUTE AUTO 0.04 K/mm3 (0.00-0.05); IMMATURE GRAN PERCENT AUTO 0.6 % (0.0-0.4); LYMPHOCYTES ABSOLUTE AUTO 1.4 K/mm3 (1.0-4.8); MEAN CORPUSCULAR HEMOGLOBIN 22.1 pg (28.0-32.0); MEAN CORPUSCULAR HGB CONC 29.4 g/dl (32.0-36.0); MEAN CORPUSCULAR VOLUME 75.1 fl (83.0-99.0); MEAN PLATELET VOLUME 9.3 fl (9.4-12.4); MONOCYTES ABSOLUTE AUTO 0.8 K/mm3 (0.0-0.8); MONOCYTES PERCENT AUTO 12.1 % (0.0-8.0); NEUTROPHILS ABSOLUTE AUTO 4.3 K/mm3 (1.8-7.7); PLATELET COUNT,PLT 266 K/mm3 (150-400); WHITE BLOOD CELL COUNT,WBC 6.53 K/mm3 (3.9-11.3)
[2023-07-24] MEDS: LORazepam 2 MG/ML SDV IVPUSH ONE ×3 (16:06→18:40)
[2023-07-24] MEDS: Labetalol 100 MG/20 ML MDV IVPUSH ONE (16:07)
[2023-07-24 16:28] LABS: ALBUMIN 4.3 g/dl (3.4-5.0); ANION GAP 16.6 (5-15); BILIRUBIN TOTAL 0.3 mg/dL (0.2-1.0); BUN/CREATININE RATIO 11.8 (14-18); CREATININE 1.1 mg/dL (0.7-1.3); EST CRCL DRUG DOSING (CG) 101.9 mL/min; POTASSIUM,K 4.6 mEq/L (3.5-5.1); PROTEIN TOTAL,TP 8.6 g/dl (6.4-8.2)
[2023-07-24] MEDS: Sodium Chloride 0.9% 1,000 ML IV SCH (16:32)
[2023-07-24 17:51] LABS: APPEARANCE,URINE CLEAR (Clear); BILIRUBIN,URINE NEGATIVE (Negative); COLOR,URINE YELLOW (Yellow); GLUCOSE,URINE NEGATIVE (Negative); KETONES,URINE NEGATIVE (Negative); LEUKOCYTE ESTERASE,URINE NEGATIVE (Negative); NITRITE,URINE NEGATIVE (Negative); OCCULT BLOOD,URINE NEGATIVE (Negative); PROTEIN,URINE NEGATIVE (Negative); UROBILINOGEN,URINE 0.2 (0.2-1.0)
[2023-07-24 18:12] LABS: BARBITURATE SCREEN,URINE NEGATIVE (CUTOFF=200); BUPRENORPHINE SCREEN,URINE NEGATIVE (CUTOFF=10); METHADONE SCREEN, URINE NEGATIVE (CUT0FF=200); METHAMPHETAMINES SCREEN, URINE NEGATIVE (CUTOFF=500); OXYCODONE SCREEN,URINE NEGATIVE (CUT0FF=100); THC SCREEN,URINE 20 NG/ML NEGATIVE (CUTOFF=50)
[2023-07-24 18:21] LABS: AMPHETAMINES SCREEN, URINE PRESUMPTIVE POSITIVE (CUTOFF=500)
[2023-07-24 18:22] LABS: BENZODIAZEPINES SCREEN,URINE PRESUMPTIVE POSITIVE (CUTOFF=150)
[2023-07-24] MEDS: cloNIDine 0.1 MG Tab PO ONE (19:25)
[2023-07-24] MEDS: Metoprolol Succinate 25 MG Tab.ER PO ONE (19:38)
[2023-07-24] MEDS: Lactated Ringers 500 ML IV ONE (19:38)
[2023-07-24] MEDS ORDERED: cloNIDine 0.1 MG Tab PO ONE (20:39)
[2023-07-24] MEDS: Ketorolac 30 MG/ML SDV IVPUSH ONE (21:00)
== END 2023-07-24 22:12 | disposition other institution (70) ==
LOC: JD.ED 13:21
DX: I10 Essential (primary) hypertension (principal); F10.130 Alcohol abuse with withdrawal, uncomplicated; E11.9 Type 2 diabetes mellitus without complications; Z79.899 Other long term (current) drug therapy; Z90.49 Acquired absence of other specified parts of digestive tract; Y90.9 Presence of alcohol in blood, level not specified
CPT/HCPCS: 36415; 70450; 80053; 80306; 81003; 83880; 84484; 85025; 93005; 96361; 96374; 96375; 96376; 99285; A9270; J1885; J1921; J2060; J7030; J7120; 93010; 99284

== ENCOUNTER 2023-08-24 16:48 | Emergency (ER) | payer BC ==
[2023-08-24] MEDS: Sodium Chloride 0.9% 1,000 ML IV STA ×2 (17:47→18:55)
[2023-08-24 17:48] LABS: HEMOGLOBIN 14.2 gm/dl (14.0-18.0); MEAN CORPUSCULAR HEMOGLOBIN 21.9 pg (28.0-32.0); MEAN CORPUSCULAR HGB CONC 30.9 g/dl (32.0-36.0); PLATELET COUNT,PLT 352 K/mm3 (150-400); RED BLOOD CELL COUNT 6.48 M/mm3 (4.52-5.90); WHITE BLOOD CELL COUNT,WBC 9.42 K/mm3 (3.9-11.3)
[2023-08-24] MEDS: Ondansetron 4 MG/2 ML SDV IVPUSH ONE (17:57)
[2023-08-24 18:20] LABS: A/G RATIO 0.9 (1-2); ALBUMIN 4.6 g/dl (3.4-5.0); ANION GAP 36.1 (5-15); BILIRUBIN TOTAL 0.5 mg/dL (0.2-1.0); BUN/CREATININE RATIO 5.2 (14-18); CALCIUM 9.4 mg/dL (8.5-10.1); CREATININE 8.4 mg/dL (0.7-1.3); EST CRCL DRUG DOSING (CG) 13.34 mL/min; ETHANOL BLOOD MEDICAL 0.26 gm% (0.00); POTASSIUM,K 4.1 mEq/L (3.5-5.1); PROTEIN TOTAL,TP 9.8 g/dl (6.4-8.2); TSH 2.092 uIU/mL (0.358-3.74)
[2023-08-24 18:57] LABS: BAND PERCENT MAN 0 % (0-10); BASOPHILS PERCENT MAN 0 (0.2-1.2); EOSINOPHILS PERCENT MAN 0 % (0.8-7.0); LYMPHOCYTES % ATYPICAL MANUAL 0 %; LYMPHOCYTES PERCENT MAN 11 % (20-40); MONOCYTES PERCENT MAN 2 % (2-10)
[2023-08-24 18:59] LABS: ANISOCYTOSIS 2+ MODERATE; MICROCYTOSIS 2+ MODERATE; OVALOCYTES 1+ SLIGHT; POIKILOCYTOSIS 1+ SLIGHT
[2023-08-24 19:00] LABS: PLATELET COUNT ESTIMATE ADEQUATE
[2023-08-24 19:18] LABS: BASE EXCESS ARTERIAL -10.5 (-2-2.0); BICARBONATE,ARTERIAL 14.5 meq/L (22.0-26.0); O2 SATURATION ARTERIAL 92.7 % (96.0-97.0); PCO2 ARTERIAL 30.7 mmHg (35.0-45.0)
[2023-08-24] MEDS: LORazepam 2 MG/ML SDV IVPUSH ONE ×2 (19:47→20:16)
[2023-08-24] MEDS: Sodium Chloride 0.9% 1,000 ML IV ONE (20:05)
[2023-08-24] MEDS: Sodium Chloride 0.9% 1,000 ML ONE (20:05)
[2023-08-24] MEDS: Sodium Bicarbonate 150 MEQ in Dextrose 5% in Water 1,000 ML IV ONE (20:51)
[2023-08-24] MEDS: PHENobarbital Sodium 65 MG/ML SDV IVPUSH SCH (20:52)
[2023-08-24] MEDS: Insulin Regular in 0.9 % NACL 100 ML IV SCH (20:52)
[2023-08-24] MEDS ORDERED: Insulin Regular in 0.9 % NACL 100 ML IV SCH (21:08)
== END 2023-08-24 22:08 ==
LOC: JD.ED 16:48
DX: F10.20 Alcohol dependence, uncomplicated (principal); N17.9 Acute kidney failure, unspecified; E86.0 Dehydration; E87.20 Acidosis, unspecified; F17.210 Nicotine dependence, cigarettes, uncomplicated; I10 Essential (primary) hypertension; E11.9 Type 2 diabetes mellitus without complications; Z90.49 Acquired absence of other specified parts of digestive tract; Z79.899 Other long term (current) drug therapy; Z79.4 Long term (current) use of insulin; Y90.9 Presence of alcohol in blood, level not specified
CPT/HCPCS: 36415; 36600; 51702; 71045; 80053; 80143; 80179; 80307; 82803; 82947; 83735; 84443; 85007; 85027; 93005; 96361; 96365; 96375; 99285; J1815; J2060; J2405; J2560; J7030; J7060; 93010; J3490

== ENCOUNTER 2023-10-13 11:58 | Emergency (ER) | payer BC ==
[2023-10-13] MEDS: Sodium Chloride 0.9% 1,000 ML IV SCH ×2 (12:25→15:00)
[2023-10-13] MEDS: Ondansetron 4 MG/2 ML SDV IVPUSH ONE (12:34)
[2023-10-13 12:40] LABS: BASOPHILS ABSOLUTE AUTO 0.1 K/mm3 (0.0-0.2); EOSINOPHILS ABSOLUTE AUTO 0.1 K/mm3 (0.0-0.4); EOSINOPHILS PERCENT AUTO 0.8 % (0.0-6.0); HEMATOCRIT 51.5 % (42.0-52.0); HEMOGLOBIN 17.3 gm/dl (14.0-18.0); IMMATURE GRAN ABSOLUTE AUTO 0.02 K/mm3 (0.00-0.05); IMMATURE GRAN PERCENT AUTO 0.3 % (0.0-0.4); LYMPHOCYTES ABSOLUTE AUTO 2.5 K/mm3 (1.0-4.8); MEAN CORPUSCULAR HEMOGLOBIN 27.7 pg (28.0-32.0); MEAN CORPUSCULAR HGB CONC 33.6 g/dl (32.0-36.0); MEAN CORPUSCULAR VOLUME 82.4 fl (83.0-99.0); MEAN PLATELET VOLUME 8.7 fl (9.4-12.4); MONOCYTES ABSOLUTE AUTO 0.4 K/mm3 (0.0-0.8); MONOCYTES PERCENT AUTO 5.7 % (0.0-8.0); NEUTROPHILS ABSOLUTE AUTO 4.1 K/mm3 (1.8-7.7); NEUTROPHILS PERCENT AUTO 57.2 % (41.0-71.0); PLATELET COUNT,PLT 229 K/mm3 (150-400); RED BLOOD CELL COUNT 6.25 M/mm3 (4.52-5.90); WHITE BLOOD CELL COUNT,WBC 7.21 K/mm3 (3.9-11.3)
[2023-10-13 13:15] LABS: A/G RATIO 1.1 (1-2); ALBUMIN 4.3 g/dl (3.4-5.0); ANION GAP 25.5 (5-15); BILIRUBIN TOTAL 0.5 mg/dL (0.2-1.0); CALCIUM 8.7 mg/dL (8.5-10.1); EST CRCL DRUG DOSING (CG) 115.41 mL/min; ETHANOL BLOOD MEDICAL 0.44 gm% (0.00); POTASSIUM,K 3.5 mEq/L (3.5-5.1); PROTEIN TOTAL,TP 8.4 g/dl (6.4-8.2)
[2023-10-13 13:46] LABS: SLIDE REVIEW ABNORMAL SMEAR
[2023-10-13] MEDS: Pantoprazole 40 MG Vial IVPUSH ONE (16:10)
[2023-10-13 16:36] LABS: BARBITURATE SCREEN,URINE NEGATIVE (CUTOFF=200); BENZODIAZEPINES SCREEN,URINE NEGATIVE (CUTOFF=150); BUPRENORPHINE SCREEN,URINE NEGATIVE (CUTOFF=10); METHADONE SCREEN, URINE NEGATIVE (CUT0FF=200); METHAMPHETAMINES SCREEN, URINE NEGATIVE (CUTOFF=500); OXYCODONE SCREEN,URINE NEGATIVE (CUT0FF=100); THC SCREEN,URINE 20 NG/ML NEGATIVE (CUTOFF=50)
[2023-10-13 16:45] LABS: AMPHETAMINES SCREEN, URINE NEGATIVE (CUTOFF=500)
[2023-10-13] MEDS: Lactated Ringers 1,000 ML IV SCH (17:27)
[2023-10-13] MEDS: LORazepam 2 MG/ML SDV IVPUSH ONE ×2 (18:00→20:34)
[2023-10-13] MEDS: Metoprolol Tartrate 100 MG Tab PO SCH (20:35)
== END 2023-10-13 22:29 | disposition home or self-care (01) ==
LOC: JD.ED 11:58
DX: F10.121 Alcohol abuse with intoxication delirium (principal); E86.0 Dehydration; I10 Essential (primary) hypertension; E11.9 Type 2 diabetes mellitus without complications; Z79.4 Long term (current) use of insulin; Z79.899 Other long term (current) drug therapy
CPT/HCPCS: 36415; 80053; 80306; 80307; 85025; 93005; 96361; 96374; 96375; 96376; 99284; A9270; J2060; J2405; J2470; J7030; J7120; 93010

== ENCOUNTER 2023-11-02 13:09 | Inpatient (IN) | payer BC ==
[2023-11-02 14:25] LABS: BASOPHILS ABSOLUTE AUTO 0.1 K/mm3 (0.0-0.2); BASOPHILS PERCENT AUTO 1.2 % (0.0-1.0); EOSINOPHILS ABSOLUTE AUTO 0.1 K/mm3 (0.0-0.4); EOSINOPHILS PERCENT AUTO 1.4 % (0.0-6.0); HEMATOCRIT 51.7 % (42.0-52.0); HEMOGLOBIN 18.1 gm/dl (14.0-18.0); IMMATURE GRAN ABSOLUTE AUTO 0.05 K/mm3 (0.00-0.05); IMMATURE GRAN PERCENT AUTO 0.8 % (0.0-0.4); LYMPHOCYTES ABSOLUTE AUTO 2.8 K/mm3 (1.0-4.8); LYMPHOCYTES PERCENT AUTO 42.6 % (24.0-44.0); MEAN CORPUSCULAR HEMOGLOBIN 29.3 pg (28.0-32.0); MEAN CORPUSCULAR VOLUME 83.7 fl (83.0-99.0); MEAN PLATELET VOLUME 8.9 fl (9.4-12.4); MONOCYTES ABSOLUTE AUTO 0.5 K/mm3 (0.0-0.8); MONOCYTES PERCENT AUTO 7.6 % (0.0-8.0); NEUTROPHILS PERCENT AUTO 46.4 % (41.0-71.0); PLATELET COUNT,PLT 262 K/mm3 (150-400); RED BLOOD CELL COUNT 6.18 M/mm3 (4.52-5.90); WHITE BLOOD CELL COUNT,WBC 6.45 K/mm3 (3.9-11.3)
[2023-11-02] MEDS: Sodium Chloride 0.9% 1,000 ML IV ONE ×4 (14:36→23:04)
[2023-11-02 15:00] LABS: A/G RATIO 1.1 (1-2); ALBUMIN 4.5 g/dl (3.4-5.0); ANION GAP 27.2 (5-15); BILIRUBIN TOTAL 0.5 mg/dL (0.2-1.0); BUN/CREATININE RATIO 10.9 (14-18); CREATININE 1.1 mg/dL (0.7-1.3); EST CRCL DRUG DOSING (CG) 98.88 mL/min; ETHANOL BLOOD MEDICAL 0.47 gm% (0.00); POTASSIUM,K 3.2 mEq/L (3.5-5.1); PROTEIN TOTAL,TP 8.8 g/dl (6.4-8.2); TSH 1.327 uIU/mL (0.358-3.74)
[2023-11-02] MEDS: LORazepam 2 MG/ML SDV IVPUSH ONE ×4 (15:30→23:00)
[2023-11-02 17:06] LABS: BARBITURATE SCREEN,URINE NEGATIVE (CUTOFF=200); BENZODIAZEPINES SCREEN,URINE NEGATIVE (CUTOFF=150); BUPRENORPHINE SCREEN,URINE NEGATIVE (CUTOFF=10); METHADONE SCREEN, URINE NEGATIVE (CUT0FF=200); METHAMPHETAMINES SCREEN, URINE NEGATIVE (CUTOFF=500); OXYCODONE SCREEN,URINE NEGATIVE (CUT0FF=100); THC SCREEN,URINE 20 NG/ML NEGATIVE (CUTOFF=50)
[2023-11-02 17:17] LABS: AMPHETAMINES SCREEN, URINE NEGATIVE (CUTOFF=500)
[2023-11-02] MEDS: Potassium Chloride 20 MEQ Tab.ER PO ONE (22:05)
[2023-11-02 22:50] LABS: BUN/CREATININE RATIO 12.2 (14-18); CREATININE 0.9 mg/dL (0.7-1.3); EST CRCL DRUG DOSING (CG) 120.85 mL/min
[2023-11-03] MEDS: LORazepam 2 MG/ML SDV ONE (04:16)
[2023-11-03] MEDS: Potassium Chloride 20 MEQ Tab.ER PO ONE ×2 (07:41→08:32)
[2023-11-03] MEDS ORDERED: Docusate Sodium 100 MG Cap PO PRN (08:09)
[2023-11-03] MEDS: chlordiazePOXIDE 25 MG Cap PO SCH ×2 (08:24→20:28)
[2023-11-03] MEDS: Pantoprazole 40 MG Tab.CR PO SCH (08:24)
[2023-11-03] MEDS: Nicotine 14 MG/24 Hr Patch TRDERM SCH (08:24)
[2023-11-03] MEDS: Enoxaparin 40 MG/0.4 ML Syringe SUBCUT SCH (08:25)
[2023-11-03] MEDS: Potassium Chloride 10 MEQ in Premix Bag 1 BAG IV SCH (08:27)
[2023-11-03] MEDS: LORazepam 2 MG/ML SDV IVPUSH PRN (08:27)
[2023-11-03] MEDS ORDERED: Polyethylene Glycol 3350 Powder 17 GM Packet PO PRN (09:00)
[2023-11-03] MEDS: Magnesium Sulfate/Water 4 GM in Premix Bag 1 BAG IV ONE (10:00)
[2023-11-03] MEDS: Thiamine 100 MG Tab PO SCH (10:01)
[2023-11-03] MEDS: Sodium Chloride 0.9% 1,000 ML IV SCH (10:01)
[2023-11-03] MEDS: Folic Acid 1 MG Tab PO SCH (10:02)
[2023-11-03] MEDS ORDERED: Lisinopril 10 MG Tab PO SCH (10:15)
[2023-11-03] MEDS ORDERED: Hydrochlorothiazide 12.5 MG Cap PO SCH (10:15)
[2023-11-03] MEDS: Insulin Lispro 100 Unit/ML 3 ML KwikPen SUBCUT SCH (11:36)
[2023-11-03] MEDS: Labetalol 100 MG/20 ML MDV IVPUSH ONE (14:46)
[2023-11-03] MEDS: Ondansetron 4 MG/2 ML SDV IV PRN (14:46)
[2023-11-03] MEDS: PHENobarbital 32.4 MG Tab PO ONE (16:23)
[2023-11-03] MEDS: Melatonin 3 MG Tab PO SCH (20:28)
[2023-11-03] MEDS: Metoprolol Tartrate 100 MG Tab PO SCH (20:28)
[2023-11-04] MEDS: Acetaminophen 325 MG Tab PO PRN (01:16)
[2023-11-04 05:39] LABS: A/G RATIO 1.1 (1-2); ALBUMIN 3.8 g/dl (3.4-5.0); ANION GAP 15.5 (5-15); BUN/CREATININE RATIO 7.8 (14-18); CALCIUM 8.8 mg/dL (8.5-10.1); CREATININE 0.9 mg/dL (0.7-1.3); EST CRCL DRUG DOSING (CG) 120.85 mL/min; MAGNESIUM 1.9 mg/dL (1.8-2.4); POTASSIUM,K 3.5 mEq/L (3.5-5.1); PROTEIN TOTAL,TP 7.3 g/dl (6.4-8.2)
[2023-11-04 05:51] LABS: BASOPHILS PERCENT AUTO 0.6 % (0.0-1.0); EOSINOPHILS ABSOLUTE AUTO 0.2 K/mm3 (0.0-0.4); EOSINOPHILS PERCENT AUTO 3.1 % (0.0-6.0); HEMATOCRIT 43.3 % (42.0-52.0); IMMATURE GRAN ABSOLUTE AUTO 0.03 K/mm3 (0.00-0.05); IMMATURE GRAN PERCENT AUTO 0.6 % (0.0-0.4); LYMPHOCYTES ABSOLUTE AUTO 1.2 K/mm3 (1.0-4.8); LYMPHOCYTES PERCENT AUTO 22.7 % (24.0-44.0); MEAN CORPUSCULAR HEMOGLOBIN 29.2 pg (28.0-32.0); MEAN CORPUSCULAR HGB CONC 33.9 g/dl (32.0-36.0); MEAN CORPUSCULAR VOLUME 86.1 fl (83.0-99.0); MEAN PLATELET VOLUME 9.3 fl (9.4-12.4); MONOCYTES ABSOLUTE AUTO 0.8 K/mm3 (0.0-0.8); MONOCYTES PERCENT AUTO 15.6 % (0.0-8.0); NEUTROPHILS PERCENT AUTO 57.4 % (41.0-71.0); RED BLOOD CELL COUNT 5.03 M/mm3 (4.52-5.90); WHITE BLOOD CELL COUNT,WBC 5.24 K/mm3 (3.9-11.3)
[2023-11-04 05:56] LABS: HEMOGLOBIN 14.7 gm/dl (14.0-18.0); PLATELET COUNT,PLT 159 K/mm3 (150-400)
[2023-11-04] MEDS: Lactated Ringers 1,000 ML IV SCH (06:33)
[2023-11-04] MEDS: Lisinopril 20 MG Tab PO SCH (08:47)
[2023-11-04] MEDS: Vitamin B6-pyridOXINE 50 MG Tab PO SCH (08:47)
[2023-11-04] MEDS: Chlorthalidone 25 MG Tab PO SCH (08:48)
[2023-11-04] MEDS: Cyanocobalamin (Vitamin B12) 1,000 MCG Tab PO SCH (08:48)
[2023-11-04] MEDS: Cholecalciferol (Vitamin D3) 5,000 UNIT Cap PO SCH (08:49)
[2023-11-04] MEDS: Magnesium Oxide 400 MG Tab PO SCH (08:49)
[2023-11-04] MEDS: Potassium Chloride 20 MEQ Tab.ER PO ONE ×2 (11:22→20:28)
[2023-11-05] MEDS: Gabapentin 100 MG Cap PO SCH (00:04)
[2023-11-05 06:32] LABS: BASOPHILS PERCENT AUTO 0.7 % (0.0-1.0); EOSINOPHILS ABSOLUTE AUTO 0.3 K/mm3 (0.0-0.4); EOSINOPHILS PERCENT AUTO 5.3 % (0.0-6.0); HEMATOCRIT 44.1 % (42.0-52.0); HEMOGLOBIN 14.4 gm/dl (14.0-18.0); IMMATURE GRAN ABSOLUTE AUTO 0.06 K/mm3 (0.00-0.05); LYMPHOCYTES ABSOLUTE AUTO 1.9 K/mm3 (1.0-4.8); LYMPHOCYTES PERCENT AUTO 31.8 % (24.0-44.0); MEAN CORPUSCULAR HEMOGLOBIN 28.8 pg (28.0-32.0); MEAN CORPUSCULAR HGB CONC 32.7 g/dl (32.0-36.0); MEAN CORPUSCULAR VOLUME 88.2 fl (83.0-99.0); MEAN PLATELET VOLUME 9.2 fl (9.4-12.4); MONOCYTES ABSOLUTE AUTO 0.9 K/mm3 (0.0-0.8); MONOCYTES PERCENT AUTO 14.4 % (0.0-8.0); NEUTROPHILS ABSOLUTE AUTO 2.8 K/mm3 (1.8-7.7); NEUTROPHILS PERCENT AUTO 46.8 % (41.0-71.0); PLATELET COUNT,PLT 163 K/mm3 (150-400); WHITE BLOOD CELL COUNT,WBC 6.06 K/mm3 (3.9-11.3)
[2023-11-05 06:59] LABS: ALBUMIN 3.8 g/dl (3.4-5.0); ANION GAP 14.2 (5-15); BILIRUBIN TOTAL 0.7 mg/dL (0.2-1.0); BUN/CREATININE RATIO 12.5 (14-18); CALCIUM 9.8 mg/dL (8.5-10.1); CREATININE 1.2 mg/dL (0.7-1.3); EST CRCL DRUG DOSING (CG) 90.64 mL/min; MAGNESIUM 1.6 mg/dL (1.8-2.4); POTASSIUM,K 4.2 mEq/L (3.5-5.1); PROTEIN TOTAL,TP 7.6 g/dl (6.4-8.2)
[2023-11-05] MEDS: Magnesium Sulfate/Water 2 GM in Premix Bag 1 BAG IV ONE (07:58)
[2023-11-05] MEDS: Venlafaxine 75 MG Cap.ER PO SCH (08:05)
[2023-11-05] MEDS: chlordiazePOXIDE 25 MG Cap PO SCH (12:23)
== END 2023-11-05 13:00 | disposition home or self-care (01) | DRG 775 ==
LOC: JD.ED 13:09 → JD.MS 11-03 06:10 → JD.ICU 11-03 12:34
PROVIDERS: ADMIT Family Medicine; ATTEND Family Medicine
DX: F10.939 Alcohol use, unspecified with withdrawal, unspecified (principal); I10 Essential (primary) hypertension; E87.6 Hypokalemia; E83.42 Hypomagnesemia; F32.A Depression, unspecified; E11.9 Type 2 diabetes mellitus without complications; F41.9 Anxiety disorder, unspecified; G47.30 Sleep apnea, unspecified; F17.210 Nicotine dependence, cigarettes, uncomplicated
CPT/HCPCS: 36415; 80048; 80053; 80143; 80179; 80306; 80307; 82947; 83735; 84100; 84443; 85025; 93005; 93010; 96361; 96374; 96376; 99285; 99285-25; A9270-GY; J1650; J1815; J1921; J2060; J2405; J3475; J3480; J7030; J7120; U0002

== ENCOUNTER 2023-11-14 16:10 | Emergency (ER) | payer BC ==
[2023-11-14] MEDS: Sodium Chloride 0.9% 1,000 ML IV ONE ×3 (16:34→19:42)
[2023-11-14 16:38] LABS: BASOPHILS PERCENT AUTO 0.6 % (0.0-1.0); EOSINOPHILS ABSOLUTE AUTO 0.1 K/mm3 (0.0-0.4); EOSINOPHILS PERCENT AUTO 1.9 % (0.0-6.0); HEMATOCRIT 44.6 % (42.0-52.0); HEMOGLOBIN 16.1 gm/dl (14.0-18.0); IMMATURE GRAN ABSOLUTE AUTO 0.03 K/mm3 (0.00-0.05); IMMATURE GRAN PERCENT AUTO 0.4 % (0.0-0.4); LYMPHOCYTES ABSOLUTE AUTO 1.7 K/mm3 (1.0-4.8); LYMPHOCYTES PERCENT AUTO 23.8 % (24.0-44.0); MEAN CORPUSCULAR HEMOGLOBIN 29.9 pg (28.0-32.0); MEAN CORPUSCULAR HGB CONC 36.1 g/dl (32.0-36.0); MEAN CORPUSCULAR VOLUME 82.9 fl (83.0-99.0); MONOCYTES ABSOLUTE AUTO 1.1 K/mm3 (0.0-0.8); MONOCYTES PERCENT AUTO 15.5 % (0.0-8.0); NEUTROPHILS PERCENT AUTO 57.8 % (41.0-71.0); PLATELET COUNT,PLT 147 K/mm3 (150-400); RED BLOOD CELL COUNT 5.38 M/mm3 (4.52-5.90); WHITE BLOOD CELL COUNT,WBC 6.97 K/mm3 (3.9-11.3)
[2023-11-14 17:08] LABS: A/G RATIO 1.1 (1-2); ALBUMIN 4.2 g/dl (3.4-5.0); ANION GAP 22.8 (5-15); BILIRUBIN TOTAL 0.8 mg/dL (0.2-1.0); BUN/CREATININE RATIO 9.2 (14-18); CALCIUM 8.5 mg/dL (8.5-10.1); CREATININE 1.2 mg/dL (0.7-1.3); EST CRCL DRUG DOSING (CG) 107.25 mL/min; ETHANOL BLOOD MEDICAL 0.46 gm% (0.00); POTASSIUM,K 2.8 mEq/L (3.5-5.1); PROTEIN TOTAL,TP 7.9 g/dl (6.4-8.2); TSH 2.369 uIU/mL (0.358-3.74)
[2023-11-14] MEDS: Potassium Chloride 10 MEQ in Premix Bag 1 BAG IV SCH (19:42)
[2023-11-14] MEDS: Metoclopramide 10 MG/2 ML SDV IVPUSH ONE (20:00)
[2023-11-14 20:31] LABS: BARBITURATE SCREEN,URINE NEGATIVE (CUTOFF=200); BENZODIAZEPINES SCREEN,URINE PRESUMPTIVE POSITIVE (CUTOFF=150); BUPRENORPHINE SCREEN,URINE NEGATIVE (CUTOFF=10); METHADONE SCREEN, URINE NEGATIVE (CUT0FF=200); METHAMPHETAMINES SCREEN, URINE NEGATIVE (CUTOFF=500); OXYCODONE SCREEN,URINE NEGATIVE (CUT0FF=100); THC SCREEN,URINE 20 NG/ML NEGATIVE (CUTOFF=50)
[2023-11-14 20:35] LABS: AMPHETAMINES SCREEN, URINE NEGATIVE (CUTOFF=500)
[2023-11-15] MEDS: Metoclopramide 10 MG/2 ML SDV IVPUSH ONE (03:35)
[2023-11-15] MEDS: LORazepam 2 MG/ML SDV IVPUSH ONE (06:43)
== END 2023-11-15 06:52 | disposition home or self-care (01) ==
LOC: JD.ED 16:10
DX: F10.121 Alcohol abuse with intoxication delirium (principal); I10 Essential (primary) hypertension; E11.9 Type 2 diabetes mellitus without complications; Z79.899 Other long term (current) drug therapy; Z79.84 Long term (current) use of oral hypoglycemic drugs; Z79.4 Long term (current) use of insulin; Y90.8 Blood alcohol level of 240 mg/100 ml or more
CPT/HCPCS: 36415; 80053; 80143; 80179; 80306; 80307; 84443; 85025; 87635; 93005; 96361; 96365; 96366; 96375; 96376; 99284; J2060; J2765; J3480; J7030; 93010; U0002

== ENCOUNTER 2023-11-22 17:10 | Inpatient (IN) | payer BC ==
[2023-11-22 18:03] LABS: BASOPHILS PERCENT AUTO 0.6 % (0.0-1.0); EOSINOPHILS PERCENT AUTO 0.2 % (0.0-6.0); HEMATOCRIT 43.8 % (42.0-52.0); HEMOGLOBIN 15.8 gm/dl (14.0-18.0); IMMATURE GRAN ABSOLUTE AUTO 0.04 K/mm3 (0.00-0.05); IMMATURE GRAN PERCENT AUTO 0.8 % (0.0-0.4); LYMPHOCYTES ABSOLUTE AUTO 0.9 K/mm3 (1.0-4.8); LYMPHOCYTES PERCENT AUTO 16.6 % (24.0-44.0); MEAN CORPUSCULAR HEMOGLOBIN 30.2 pg (28.0-32.0); MEAN CORPUSCULAR HGB CONC 36.1 g/dl (32.0-36.0); MEAN CORPUSCULAR VOLUME 83.7 fl (83.0-99.0); MEAN PLATELET VOLUME 9.7 fl (9.4-12.4); MONOCYTES ABSOLUTE AUTO 0.7 K/mm3 (0.0-0.8); MONOCYTES PERCENT AUTO 13.5 % (0.0-8.0); NEUTROPHILS ABSOLUTE AUTO 3.5 K/mm3 (1.8-7.7); NEUTROPHILS PERCENT AUTO 68.3 % (41.0-71.0); PLATELET COUNT,PLT 132 K/mm3 (150-400); RED BLOOD CELL COUNT 5.23 M/mm3 (4.52-5.90); WHITE BLOOD CELL COUNT,WBC 5.12 K/mm3 (3.9-11.3)
[2023-11-22] MEDS: Pantoprazole 40 MG Vial IVPUSH ONE (18:07)
[2023-11-22] MEDS: LORazepam 2 MG/ML SDV IVPUSH ONE ×2 (18:07→19:34)
[2023-11-22] MEDS: Lactated Ringers 1,000 ML IV ONE (18:08)
[2023-11-22] MEDS: Sodium Chloride 0.9% 10 ML Syringe FLUSH PRN (18:08)
[2023-11-22 18:35] LABS: A/G RATIO 1.1 (1-2); ALBUMIN 4.1 g/dl (3.4-5.0); ANION GAP 24.9 (5-15); BILIRUBIN TOTAL 0.9 mg/dL (0.2-1.0); CALCIUM 8.1 mg/dL (8.5-10.1); EST CRCL DRUG DOSING (CG) 112.09 mL/min; ETHANOL BLOOD MEDICAL 0.31 gm% (0.00); POTASSIUM,K 2.9 mEq/L (3.5-5.1); PROTEIN TOTAL,TP 7.7 g/dl (6.4-8.2)
[2023-11-22 19:23] LABS: APPEARANCE,URINE CLEAR (Clear); BILIRUBIN,URINE 2+ (Negative); COLOR,URINE DARK YELLOW (Yellow); GLUCOSE,URINE NEGATIVE (Negative); KETONES,URINE 3+ (Negative); LEUKOCYTE ESTERASE,URINE NEGATIVE (Negative); NITRITE,URINE NEGATIVE (Negative); OCCULT BLOOD,URINE 2+ (Negative); PH,URINE 6.5 (5.0-8.0); PROTEIN,URINE 3+ (Negative)
[2023-11-22] MEDS ORDERED: Magnesium Sulfate (4.06 MEQ/ML) 5 GM/10 ML SDV IV ONE ×2 (19:28→19:34)
[2023-11-22 19:31] LABS: BACTERIA,URINE FEW /hpf (FEW); HYALINE CASTS,URINE 30-40 /lpf (0-5); MUCUS,URINE MODERATE /hpf (FEW); SQUAMOUS EPITHELIAL CELLS,UR 0-5 /hpf (0-5); WBC,URINE 0-5 /hpf (0-5)
[2023-11-22 19:34] LABS: AMPHETAMINES SCREEN, URINE NEGATIVE (CUTOFF=500); BARBITURATE SCREEN,URINE NEGATIVE (CUTOFF=200); BENZODIAZEPINES SCREEN,URINE PRESUMPTIVE POSITIVE (CUTOFF=150); BUPRENORPHINE SCREEN,URINE NEGATIVE (CUTOFF=10); METHADONE SCREEN, URINE NEGATIVE (CUT0FF=200); METHAMPHETAMINES SCREEN, URINE NEGATIVE (CUTOFF=500); OXYCODONE SCREEN,URINE NEGATIVE (CUT0FF=100); THC SCREEN,URINE 20 NG/ML NEGATIVE (CUTOFF=50)
[2023-11-22] MEDS: Potassium Chloride 10 MEQ in Premix Bag 1 BAG IV SCH (19:41)
[2023-11-22] MEDS: Sodium Chloride 0.9% 1,000 ML IV ONE ×2 (19:42→22:50)
[2023-11-22] MEDS ORDERED: Magnesium Sulfate/Water Premix 2 GM in Premix Bag 1 BAG IV ONE (19:45)
[2023-11-22] MEDS: Magnesium Sulfate/Water Premix 2 GM in Premix Bag 1 BAG IV SCH (20:40)
[2023-11-22] MEDS: Metoprolol Tartrate 50 MG Tab PO SCH (21:01)
[2023-11-22] MEDS: chlordiazePOXIDE 25 MG Cap PO SCH (21:01)
[2023-11-22] MEDS: Thiamine 250 MG in Sodium Chloride 0.9% 250 ML IV SCH (21:02)
[2023-11-22] MEDS: Ondansetron 4 MG/2 ML SDV IV PRN (21:07)
[2023-11-22] MEDS: Insulin Lispro 100 Unit/ML 3 ML KwikPen SUBCUT SCH (21:16)
[2023-11-23 04:52] LABS: HEMOGLOBIN 13.3 gm/dl (14.0-18.0); MEAN CORPUSCULAR HEMOGLOBIN 30.1 pg (28.0-32.0); MEAN PLATELET VOLUME 9.7 fl (9.4-12.4); PLATELET COUNT,PLT 87 K/mm3 (150-400); RED BLOOD CELL COUNT 4.42 M/mm3 (4.52-5.90); WHITE BLOOD CELL COUNT,WBC 3.71 K/mm3 (3.9-11.3)
[2023-11-23 05:25] LABS: A/G RATIO 1.1 (1-2); ALBUMIN 3.3 g/dl (3.4-5.0); ANION GAP 14.9 (5-15); BILIRUBIN TOTAL 0.9 mg/dL (0.2-1.0); BUN/CREATININE RATIO 13.3 (14-18); CALCIUM 7.4 mg/dL (8.5-10.1); CREATININE 0.9 mg/dL (0.7-1.3); EST CRCL DRUG DOSING (CG) 124.54 mL/min; MAGNESIUM 1.8 mg/dL (1.8-2.4); POTASSIUM,K 2.9 mEq/L (3.5-5.1); PROTEIN TOTAL,TP 6.3 g/dl (6.4-8.2)
[2023-11-23] MEDS ORDERED: Magnesium Sulfate (4.06 MEQ/ML) 5 GM/10 ML SDV IV ONE (06:30)
[2023-11-23] MEDS: Potassium Chloride 10 MEQ in Premix Bag 1 BAG IV SCH (06:48)
[2023-11-23] MEDS: Magnesium Sulfate/Water Premix 2 GM in Premix Bag 1 BAG IV ONE (06:49)
[2023-11-23] MEDS: Sodium Chloride 0.9% 1,000 ML IV SCH (06:52)
[2023-11-23] MEDS: Pantoprazole 40 MG Vial IVPUSH SCH (07:41)
[2023-11-23] MEDS: Potassium Chloride 20 MEQ Tab.ER PO SCH (08:01)
[2023-11-23] MEDS: hydrOXYzine HCl 25 MG Tab PO ONE (12:14)
[2023-11-23] MEDS: Thiamine 200 MG/2 ML MDV IVPUSH SCH (20:17)
[2023-11-23] MEDS: LORazepam 2 MG/ML SDV IVPUSH PRN (22:11)
[2023-11-24 05:42] LABS: HEMATOCRIT 39.6 % (42.0-52.0); HEMOGLOBIN 13.4 gm/dl (14.0-18.0); MEAN CORPUSCULAR HEMOGLOBIN 30.2 pg (28.0-32.0); MEAN CORPUSCULAR HGB CONC 33.8 g/dl (32.0-36.0); MEAN CORPUSCULAR VOLUME 89.4 fl (83.0-99.0); PLATELET COUNT,PLT 82 K/mm3 (150-400); RED BLOOD CELL COUNT 4.43 M/mm3 (4.52-5.90); WHITE BLOOD CELL COUNT,WBC 3.35 K/mm3 (3.9-11.3)
[2023-11-24 06:11] LABS: A/G RATIO 1.1 (1-2); ALBUMIN 3.5 g/dl (3.4-5.0); ANION GAP 12.5 (5-15); BILIRUBIN TOTAL 0.8 mg/dL (0.2-1.0); BUN/CREATININE RATIO 7.5 (14-18); CREATININE 1.2 mg/dL (0.7-1.3); EST CRCL DRUG DOSING (CG) 93.41 mL/min; MAGNESIUM 1.7 mg/dL (1.8-2.4); PROTEIN TOTAL,TP 6.7 g/dl (6.4-8.2)
[2023-11-24 06:37] LABS: CALCIUM 9.2 mg/dL (8.5-10.1); POTASSIUM,K 3.5 mEq/L (3.5-5.1)
[2023-11-24] MEDS ORDERED: Magnesium Sulfate (4.06 MEQ/ML) 5 GM/10 ML SDV IV ONE (07:00)
[2023-11-24] MEDS: Magnesium Sulfate/Water Premix 2 GM in Premix Bag 1 BAG IV ONE (07:40)
[2023-11-24] MEDS: Venlafaxine 75 MG Cap.ER PO SCH (08:33)
[2023-11-24] MEDS: chlordiazePOXIDE 25 MG Cap PO SCH (19:43)
[2023-11-24] MEDS: Lisinopril 20 MG Tab PO SCH (21:48)
[2023-11-24] MEDS: hydrALAZINE 20 MG/ML SDV IVPUSH ONE (21:51)
[2023-11-25 05:41] LABS: HEMATOCRIT 43.1 % (42.0-52.0); HEMOGLOBIN 14.6 gm/dl (14.0-18.0); MEAN CORPUSCULAR HEMOGLOBIN 30.3 pg (28.0-32.0); MEAN CORPUSCULAR HGB CONC 33.9 g/dl (32.0-36.0); MEAN CORPUSCULAR VOLUME 89.4 fl (83.0-99.0); MEAN PLATELET VOLUME 10.9 fl (9.4-12.4); PLATELET COUNT,PLT 99 K/mm3 (150-400); RED BLOOD CELL COUNT 4.82 M/mm3 (4.52-5.90)
[2023-11-25 06:09] LABS: A/G RATIO 0.9 (1-2); ALBUMIN 3.9 g/dl (3.4-5.0); BILIRUBIN TOTAL 0.7 mg/dL (0.2-1.0); BUN/CREATININE RATIO 5.8 (14-18); CREATININE 1.2 mg/dL (0.7-1.3); EST CRCL DRUG DOSING (CG) 93.41 mL/min; MAGNESIUM 1.6 mg/dL (1.8-2.4); PROTEIN TOTAL,TP 8.1 g/dl (6.4-8.2)
[2023-11-25] MEDS ORDERED: Magnesium Sulfate (4.06 MEQ/ML) 5 GM/10 ML SDV IV ONE (08:17)
[2023-11-25] MEDS: Magnesium Sulfate/Water Premix 2 GM in Premix Bag 1 BAG IV ONE (08:53)
== END 2023-11-25 11:50 | disposition home or self-care (01) | DRG 775 ==
LOC: JD.ED 17:10 → JD.ICU 19:38 → JD.MS 11-24 13:30
PROVIDERS: ADMIT Internal Medicine; ATTEND Internal Medicine
DX: F10.239 Alcohol dependence with withdrawal, unspecified (principal); I10 Essential (primary) hypertension; E11.9 Type 2 diabetes mellitus without complications; F41.9 Anxiety disorder, unspecified; F32.A Depression, unspecified; H54.7 Unspecified visual loss; G47.30 Sleep apnea, unspecified; M62.82 Rhabdomyolysis; F10.280 Alcohol dependence with alcohol-induced anxiety disorder; K70.10 Alcoholic hepatitis without ascites; E87.6 Hypokalemia; E86.0 Dehydration; E83.42 Hypomagnesemia; F10.221 Alcohol dependence with intoxication delirium; R56.9 Unspecified convulsions; Z79.4 Long term (current) use of insulin; Z90.49 Acquired absence of other specified parts of digestive tract; Z79.899 Other long term (current) drug therapy
CPT/HCPCS: 36415; 80053; 80306; 80307; 81001; 82550; 82947; 83690; 83735; 85025; 85027; 86850; 86900; 86901; 94760; 96361; 96374; 96375; 96376; 99285; 99285-25; A9270-GY; J0360; J1815; J2060; J2405; J2470; J3411; J3475; J3480; J3490; J7030; J7050; J7120

== ENCOUNTER 2023-12-03 09:21 | Emergency (ER) | payer BC ==
[2023-12-03 09:55] LABS: BASOPHILS ABSOLUTE AUTO 0.1 K/mm3 (0.0-0.2); BASOPHILS PERCENT AUTO 1.6 % (0.0-1.0); EOSINOPHILS ABSOLUTE AUTO 0.1 K/mm3 (0.0-0.4); EOSINOPHILS PERCENT AUTO 1.3 % (0.0-6.0); HEMATOCRIT 43.2 % (42.0-52.0); HEMOGLOBIN 14.8 gm/dl (14.0-18.0); IMMATURE GRAN ABSOLUTE AUTO 0.03 K/mm3 (0.00-0.05); IMMATURE GRAN PERCENT AUTO 0.8 % (0.0-0.4); LYMPHOCYTES ABSOLUTE AUTO 1.7 K/mm3 (1.0-4.8); LYMPHOCYTES PERCENT AUTO 43.9 % (24.0-44.0); MEAN CORPUSCULAR HEMOGLOBIN 29.8 pg (28.0-32.0); MEAN CORPUSCULAR HGB CONC 34.3 g/dl (32.0-36.0); MEAN CORPUSCULAR VOLUME 87.1 fl (83.0-99.0); MEAN PLATELET VOLUME 8.6 fl (9.4-12.4); MONOCYTES ABSOLUTE AUTO 0.7 K/mm3 (0.0-0.8); MONOCYTES PERCENT AUTO 17.8 % (0.0-8.0); NEUTROPHILS ABSOLUTE AUTO 1.3 K/mm3 (1.8-7.7); NEUTROPHILS PERCENT AUTO 34.6 % (41.0-71.0); RED BLOOD CELL COUNT 4.96 M/mm3 (4.52-5.90); WHITE BLOOD CELL COUNT,WBC 3.83 K/mm3 (3.9-11.3)
[2023-12-03] MEDS: LORazepam 2 MG/ML SDV IVPUSH ONE ×2 (10:02→12:41)
[2023-12-03] MEDS: Sodium Chloride 0.9% 1,000 ML IV ONE ×2 (10:02→12:36)
[2023-12-03] MEDS: Sodium Chloride 0.9% 10 ML Syringe FLUSH PRN (10:05)
[2023-12-03 10:07] LABS: PLATELET COUNT,PLT 263 K/mm3 (150-400)
[2023-12-03 10:37] LABS: A/G RATIO 1.1 (1-2); ANION GAP 21.6 (5-15); BILIRUBIN TOTAL 0.5 mg/dL (0.2-1.0); BUN/CREATININE RATIO 7.8 (14-18); CREATININE 0.9 mg/dL (0.7-1.3); EST CRCL DRUG DOSING (CG) 124.54 mL/min; ETHANOL BLOOD MEDICAL 0.27 gm% (0.00); POTASSIUM,K 3.6 mEq/L (3.5-5.1); PROTEIN TOTAL,TP 7.8 g/dl (6.4-8.2); TSH 2.041 uIU/mL (0.358-3.74)
[2023-12-03 10:45] LABS: CALCIUM 8.2 mg/dL (8.5-10.1)
[2023-12-03 10:53] LABS: BARBITURATE SCREEN,URINE NEGATIVE (CUTOFF=200); BENZODIAZEPINES SCREEN,URINE PRESUMPTIVE POSITIVE (CUTOFF=150); BUPRENORPHINE SCREEN,URINE NEGATIVE (CUTOFF=10); METHADONE SCREEN, URINE NEGATIVE (CUT0FF=200); METHAMPHETAMINES SCREEN, URINE NEGATIVE (CUTOFF=500); OXYCODONE SCREEN,URINE NEGATIVE (CUT0FF=100); THC SCREEN,URINE 20 NG/ML NEGATIVE (CUTOFF=50)
[2023-12-03 11:06] LABS: AMPHETAMINES SCREEN, URINE NEGATIVE (CUTOFF=500)
[2023-12-03] MEDS: Metoprolol Tartrate 5 MG/5 ML SDV IVPUSH ONE (12:37)
== END 2023-12-03 14:35 | disposition home or self-care (01) ==
LOC: JD.ED 09:21
DX: F10.280 Alcohol dependence with alcohol-induced anxiety disorder (principal); F10.921 Alcohol use, unspecified with intoxication delirium; I10 Essential (primary) hypertension; E11.9 Type 2 diabetes mellitus without complications; Z79.899 Other long term (current) drug therapy; Z79.4 Long term (current) use of insulin; Z90.49 Acquired absence of other specified parts of digestive tract
CPT/HCPCS: 36415; 80053; 80143; 80179; 80306; 80307; 84443; 85025; 96361; 96374; 96375; 96376; 99284; J2060; J3490; J7030

== ENCOUNTER 2023-12-07 15:43 | Inpatient (IN) | payer BC ==
[2023-12-07 16:26] LABS: BASOPHILS ABSOLUTE AUTO 0.1 K/mm3 (0.0-0.2); BASOPHILS PERCENT AUTO 1.8 % (0.0-1.0); EOSINOPHILS ABSOLUTE AUTO 0.2 K/mm3 (0.0-0.4); EOSINOPHILS PERCENT AUTO 3.3 % (0.0-6.0); HEMATOCRIT 41.6 % (42.0-52.0); HEMOGLOBIN 14.3 gm/dl (14.0-18.0); IMMATURE GRAN ABSOLUTE AUTO 0.02 K/mm3 (0.00-0.05); IMMATURE GRAN PERCENT AUTO 0.4 % (0.0-0.4); LYMPHOCYTES ABSOLUTE AUTO 2.5 K/mm3 (1.0-4.8); MEAN CORPUSCULAR HEMOGLOBIN 30.8 pg (28.0-32.0); MEAN CORPUSCULAR HGB CONC 34.4 g/dl (32.0-36.0); MEAN CORPUSCULAR VOLUME 89.5 fl (83.0-99.0); MEAN PLATELET VOLUME 9.1 fl (9.4-12.4); MONOCYTES ABSOLUTE AUTO 0.5 K/mm3 (0.0-0.8); NEUTROPHILS ABSOLUTE AUTO 1.3 K/mm3 (1.8-7.7); NEUTROPHILS PERCENT AUTO 28.5 % (41.0-71.0); PLATELET COUNT,PLT 150 K/mm3 (150-400); RED BLOOD CELL COUNT 4.65 M/mm3 (4.52-5.90); WHITE BLOOD CELL COUNT,WBC 4.52 K/mm3 (3.9-11.3)
[2023-12-07] MEDS: Sodium Chloride 0.9% 1,000 ML IV ONE ×2 (16:29→17:48)
[2023-12-07 16:55] LABS: A/G RATIO 1.1 (1-2); ALBUMIN 3.9 g/dl (3.4-5.0); ANION GAP 19.2 (5-15); BILIRUBIN TOTAL 0.6 mg/dL (0.2-1.0); BUN/CREATININE RATIO 4.2 (14-18); CALCIUM 8.4 mg/dL (8.5-10.1); CREATININE 1.2 mg/dL (0.7-1.3); EST CRCL DRUG DOSING (CG) 93.41 mL/min; ETHANOL BLOOD MEDICAL 0.39 gm% (0.00); POTASSIUM,K 3.2 mEq/L (3.5-5.1); PROTEIN TOTAL,TP 7.5 g/dl (6.4-8.2); TSH 1.893 uIU/mL (0.358-3.74)
[2023-12-07] MEDS: Potassium Chloride 20 MEQ Tab.ER PO ONE (17:46)
[2023-12-07 19:01] LABS: BARBITURATE SCREEN,URINE NEGATIVE (CUTOFF=200); BENZODIAZEPINES SCREEN,URINE PRESUMPTIVE POSITIVE (CUTOFF=150); BUPRENORPHINE SCREEN,URINE NEGATIVE (CUTOFF=10); METHADONE SCREEN, URINE NEGATIVE (CUT0FF=200); METHAMPHETAMINES SCREEN, URINE NEGATIVE (CUTOFF=500); OXYCODONE SCREEN,URINE NEGATIVE (CUT0FF=100); THC SCREEN,URINE 20 NG/ML NEGATIVE (CUTOFF=50)
[2023-12-07 19:08] LABS: AMPHETAMINES SCREEN, URINE NEGATIVE (CUTOFF=500)
[2023-12-07] MEDS: Lactated Ringers 1,000 ML IV SCH (22:20)
[2023-12-08] MEDS: LORazepam 2 MG/ML SDV IVPUSH ONE ×4 (02:12→09:08)
[2023-12-08] MEDS: diphenhydrAMINE 50 MG/ML SDV IVPUSH ONE (02:12)
[2023-12-08] MEDS: Metoclopramide 10 MG/2 ML SDV IVPUSH ONE (02:12)
[2023-12-08] MEDS ORDERED: amLODIPine 5 MG Tab PO ONE (07:14)
[2023-12-08] MEDS: amLODIPine 10 MG Tab PO ONE (07:26)
[2023-12-08] MEDS ORDERED: Polyethylene Glycol 3350 Powder 17 GM Packet PO PRN (08:31)
[2023-12-08] MEDS ORDERED: Docusate Sodium 100 MG Cap PO PRN (08:31)
[2023-12-08] MEDS ORDERED: Acetaminophen 325 MG Tab PO PRN (08:31)
[2023-12-08] MEDS ORDERED: Thiamine 200 MG/2 ML MDV IVPUSH ONE (08:35)
[2023-12-08] MEDS ORDERED: LORazepam 2 MG/ML SDV IVPUSH PRN (09:15)
[2023-12-08 09:21] LABS: BASOPHILS ABSOLUTE AUTO 0.1 K/mm3 (0.0-0.2); BASOPHILS PERCENT AUTO 1.3 % (0.0-1.0); HEMATOCRIT 39.2 % (42.0-52.0); HEMOGLOBIN 13.6 gm/dl (14.0-18.0); IMMATURE GRAN ABSOLUTE AUTO 0.02 K/mm3 (0.00-0.05); IMMATURE GRAN PERCENT AUTO 0.5 % (0.0-0.4); LYMPHOCYTES ABSOLUTE AUTO 0.8 K/mm3 (1.0-4.8); LYMPHOCYTES PERCENT AUTO 20.2 % (24.0-44.0); MEAN CORPUSCULAR HEMOGLOBIN 30.6 pg (28.0-32.0); MEAN CORPUSCULAR HGB CONC 34.7 g/dl (32.0-36.0); MEAN CORPUSCULAR VOLUME 88.3 fl (83.0-99.0); MEAN PLATELET VOLUME 9.2 fl (9.4-12.4); MONOCYTES ABSOLUTE AUTO 0.3 K/mm3 (0.0-0.8); MONOCYTES PERCENT AUTO 6.6 % (0.0-8.0); NEUTROPHILS ABSOLUTE AUTO 2.8 K/mm3 (1.8-7.7); NEUTROPHILS PERCENT AUTO 70.4 % (41.0-71.0); PLATELET COUNT,PLT 126 K/mm3 (150-400); RED BLOOD CELL COUNT 4.44 M/mm3 (4.52-5.90); WHITE BLOOD CELL COUNT,WBC 3.91 K/mm3 (3.9-11.3)
[2023-12-08] MEDS ORDERED: Magnesium Sulfate (4.06 MEQ/ML) 5 GM/10 ML SDV IV ONE (09:56)
[2023-12-08] MEDS: Pantoprazole 40 MG Tab.CR PO SCH (09:58)
[2023-12-08] MEDS: Ondansetron 4 MG/2 ML SDV IV PRN (09:58)
[2023-12-08] MEDS: Enoxaparin 40 MG/0.4 ML Syringe SUBCUT SCH (09:59)
[2023-12-08] MEDS: Folic Acid 50 MG/10 ML MDV IV ONE (10:04)
[2023-12-08] MEDS: Folic Acid 1 MG Tab PO ONE (10:30)
[2023-12-08] MEDS: Magnesium Sulfate/Water Premix 4 GM in Premix Bag 1 BAG IV ONE (10:31)
[2023-12-08] MEDS: Potassium Chloride 10 MEQ in Premix Bag 1 BAG IV SCH (10:32)
[2023-12-08] MEDS: Thiamine 100 MG Tab PO ONE (10:40)
[2023-12-08] MEDS: LORazepam 2 MG/ML SDV IVPUSH PRN (11:02)
[2023-12-08 11:33] LABS: A/G RATIO 1.2 (1-2); ALBUMIN 3.8 g/dl (3.4-5.0); ANION GAP 22.2 (5-15); BUN/CREATININE RATIO 4.5 (14-18); CALCIUM 8.3 mg/dL (8.5-10.1); CREATININE 1.1 mg/dL (0.7-1.3); EST CRCL DRUG DOSING (CG) 101.9 mL/min; PHOSPHORUS 2.3 mg/dL (2.6-4.7); POTASSIUM,K 3.2 mEq/L (3.5-5.1); PROTEIN TOTAL,TP 7.1 g/dl (6.4-8.2)
[2023-12-08] MEDS ORDERED: Cholecalciferol (Vitamin D3) 5,000 UNIT Tab PO SCH ×2 (14:00→16:45)
[2023-12-08] MEDS ORDERED: Metoprolol Tartrate 100 MG Tab PO SCH ×2 (14:00)
[2023-12-08] MEDS: Magnesium Sulfate/Water Premix 2 GM in Premix Bag 1 BAG IV ONE (14:41)
[2023-12-08] MEDS: chlordiazePOXIDE 25 MG Cap PO SCH (14:42)
[2023-12-08] MEDS: Labetalol 100 MG/20 ML MDV IVPUSH PRN (15:21)
[2023-12-08] MEDS: Metoprolol Tartrate 100 MG Tab PO SCH (16:51)
[2023-12-08] MEDS: Potassium Phosphates 30 MMOLE in Sodium Chloride 0.9% 500 ML IV SCH (16:56)
[2023-12-08] MEDS: Cholecalciferol (Vitamin D3) 25 MCG Tab PO SCH (17:04)
[2023-12-08] MEDS: Insulin Lispro 100 Unit/ML 3 ML KwikPen SUBCUT SCH (17:43)
[2023-12-08] MEDS: Melatonin 3 MG Tab PO SCH (20:26)
[2023-12-09] MEDS: hydrALAZINE 20 MG/ML SDV IVPUSH PRN (00:49)
[2023-12-09 04:45] LABS: BASOPHILS PERCENT AUTO 0.8 % (0.0-1.0); EOSINOPHILS ABSOLUTE AUTO 0.1 K/mm3 (0.0-0.4); HEMATOCRIT 43.6 % (42.0-52.0); HEMOGLOBIN 14.5 gm/dl (14.0-18.0); IMMATURE GRAN ABSOLUTE AUTO 0.02 K/mm3 (0.00-0.05); IMMATURE GRAN PERCENT AUTO 0.5 % (0.0-0.4); LYMPHOCYTES PERCENT AUTO 26.5 % (24.0-44.0); MEAN CORPUSCULAR HEMOGLOBIN 30.9 pg (28.0-32.0); MEAN CORPUSCULAR HGB CONC 33.3 g/dl (32.0-36.0); MONOCYTES ABSOLUTE AUTO 0.5 K/mm3 (0.0-0.8); NEUTROPHILS ABSOLUTE AUTO 2.1 K/mm3 (1.8-7.7); NEUTROPHILS PERCENT AUTO 56.2 % (41.0-71.0); PLATELET COUNT,PLT 124 K/mm3 (150-400); RED BLOOD CELL COUNT 4.69 M/mm3 (4.52-5.90)
[2023-12-09 05:26] LABS: A/G RATIO 1.1 (1-2); ALBUMIN 3.8 g/dl (3.4-5.0); ANION GAP 13.9 (5-15); BUN/CREATININE RATIO 3.6 (14-18); CALCIUM 9.2 mg/dL (8.5-10.1); CREATININE 1.1 mg/dL (0.7-1.3); EST CRCL DRUG DOSING (CG) 101.9 mL/min; MAGNESIUM 1.8 mg/dL (1.8-2.4); PHOSPHORUS 3.4 mg/dL (2.6-4.7); POTASSIUM,K 3.9 mEq/L (3.5-5.1); PROTEIN TOTAL,TP 7.4 g/dl (6.4-8.2)
[2023-12-09] MEDS: Ferrous Sulfate 324 MG Tab.EC PO SCH (07:03)
[2023-12-09] MEDS: Magnesium Sulfate/Water Premix 2 GM in Premix Bag 1 BAG IV ONE (07:42)
[2023-12-09] MEDS: Venlafaxine 75 MG Cap.ER PO SCH (08:23)
[2023-12-09] MEDS: Thiamine 100 MG Tab PO SCH (08:24)
[2023-12-09] MEDS: Cholecalciferol (Vitamin D3) 5,000 UNIT Cap PO SCH (08:24)
[2023-12-09] MEDS: Folic Acid 1 MG Tab PO SCH (08:24)
[2023-12-09] MEDS: Lisinopril 20 MG Tab PO SCH (08:24)
[2023-12-09] MEDS ORDERED: Lisinopril 20 MG Tab PO SCH (09:00)
[2023-12-09] MEDS: Potassium Chloride 20 MEQ Tab.ER PO SCH (12:57)
[2023-12-09] MEDS: Chlorthalidone 25 MG Tab PO SCH (14:32)
[2023-12-10 04:39] LABS: BASOPHILS ABSOLUTE AUTO 0.1 K/mm3 (0.0-0.2); BASOPHILS PERCENT AUTO 1.1 % (0.0-1.0); EOSINOPHILS ABSOLUTE AUTO 0.2 K/mm3 (0.0-0.4); EOSINOPHILS PERCENT AUTO 3.6 % (0.0-6.0); HEMATOCRIT 43.3 % (42.0-52.0); HEMOGLOBIN 14.8 gm/dl (14.0-18.0); IMMATURE GRAN ABSOLUTE AUTO 0.06 K/mm3 (0.00-0.05); IMMATURE GRAN PERCENT AUTO 1.3 % (0.0-0.4); LYMPHOCYTES ABSOLUTE AUTO 1.4 K/mm3 (1.0-4.8); MEAN CORPUSCULAR HEMOGLOBIN 31.2 pg (28.0-32.0); MEAN CORPUSCULAR HGB CONC 34.2 g/dl (32.0-36.0); MEAN CORPUSCULAR VOLUME 91.4 fl (83.0-99.0); MEAN PLATELET VOLUME 9.8 fl (9.4-12.4); MONOCYTES ABSOLUTE AUTO 0.6 K/mm3 (0.0-0.8); MONOCYTES PERCENT AUTO 12.3 % (0.0-8.0); NEUTROPHILS ABSOLUTE AUTO 2.5 K/mm3 (1.8-7.7); NEUTROPHILS PERCENT AUTO 51.7 % (41.0-71.0); PLATELET COUNT,PLT 127 K/mm3 (150-400); RED BLOOD CELL COUNT 4.74 M/mm3 (4.52-5.90); WHITE BLOOD CELL COUNT,WBC 4.73 K/mm3 (3.9-11.3)
[2023-12-10 05:09] LABS: ALBUMIN 3.7 g/dl (3.4-5.0); ANION GAP 18.3 (5-15); BILIRUBIN TOTAL 0.9 mg/dL (0.2-1.0); CALCIUM 9.8 mg/dL (8.5-10.1); CREATININE 0.9 mg/dL (0.7-1.3); EST CRCL DRUG DOSING (CG) 124.54 mL/min; MAGNESIUM 1.5 mg/dL (1.8-2.4); POTASSIUM,K 4.3 mEq/L (3.5-5.1); PROTEIN TOTAL,TP 7.5 g/dl (6.4-8.2)
[2023-12-10] MEDS: LORazepam 1 MG Tab PO PRN (06:30)
[2023-12-10] MEDS: Magnesium Sulfate/Water Premix 4 GM in Premix Bag 1 BAG IV ONE (08:16)
== END 2023-12-10 19:08 | disposition home or self-care (01) | DRG 775 ==
LOC: JD.ED 15:43 → JD.ICU 12-08 08:30 → JD.MS 12-09 18:33
PROVIDERS: ADMIT Student in an Organized Health Care Education/Training Program; ATTEND Student in an Organized Health Care Education/Training Program
DX: F10.239 Alcohol dependence with withdrawal, unspecified (principal); F10.229 Alcohol dependence with intoxication, unspecified; I10 Essential (primary) hypertension; E11.9 Type 2 diabetes mellitus without complications; F41.9 Anxiety disorder, unspecified; F32.A Depression, unspecified; G47.30 Sleep apnea, unspecified; H54.7 Unspecified visual loss; E83.39 Other disorders of phosphorus metabolism; E87.6 Hypokalemia; E83.42 Hypomagnesemia; R56.9 Unspecified convulsions; S41.111A Laceration without foreign body of right upper arm, initial encounter; Z79.4 Long term (current) use of insulin; Z90.49 Acquired absence of other specified parts of digestive tract; Z79.899 Other long term (current) drug therapy; W19.XXXA Unspecified fall, initial encounter
CPT/HCPCS: 36415; 70450; 70450-26; 80053; 80143; 80179; 80306; 80307; 82947; 83735; 84100; 84443; 85025; 93005; 93010; 96361; 96374; 96375; 96376; 99223; 99232; 99239; 99285; 99285-25; A9270-GY; J0360; J1200; J1650; J1815; J1920; J2060; J2405; J2765; J3475; J3480; J3490; J7030; J7040; J7120; U0002

== ENCOUNTER 2023-12-18 17:16 | Emergency (ER) | payer SELFPAY ==
[2023-12-18 17:58] LABS: BASOPHILS ABSOLUTE AUTO 0.1 K/mm3 (0.0-0.2); BASOPHILS PERCENT AUTO 1.1 % (0.0-1.0); EOSINOPHILS ABSOLUTE AUTO 0.2 K/mm3 (0.0-0.4); EOSINOPHILS PERCENT AUTO 3.4 % (0.0-6.0); HEMATOCRIT 42.9 % (42.0-52.0); HEMOGLOBIN 15.3 gm/dl (14.0-18.0); IMMATURE GRAN ABSOLUTE AUTO 0.03 K/mm3 (0.00-0.05); IMMATURE GRAN PERCENT AUTO 0.7 % (0.0-0.4); LYMPHOCYTES ABSOLUTE AUTO 1.5 K/mm3 (1.0-4.8); MEAN CORPUSCULAR HEMOGLOBIN 31.2 pg (28.0-32.0); MEAN CORPUSCULAR HGB CONC 35.7 g/dl (32.0-36.0); MEAN CORPUSCULAR VOLUME 87.6 fl (83.0-99.0); MEAN PLATELET VOLUME 9.4 fl (9.4-12.4); MONOCYTES ABSOLUTE AUTO 0.6 K/mm3 (0.0-0.8); MONOCYTES PERCENT AUTO 13.3 % (0.0-8.0); NEUTROPHILS ABSOLUTE AUTO 2.1 K/mm3 (1.8-7.7); NEUTROPHILS PERCENT AUTO 48.5 % (41.0-71.0); PLATELET COUNT,PLT 205 K/mm3 (150-400); WHITE BLOOD CELL COUNT,WBC 4.42 K/mm3 (3.9-11.3)
[2023-12-18] MEDS: LORazepam 2 MG/ML SDV IVPUSH ONE ×3 (18:13→21:22)
[2023-12-18] MEDS: Sodium Chloride 0.9% 1,000 ML IV ONE ×2 (18:13→21:17)
[2023-12-18 18:30] LABS: A/G RATIO 1.1 (1-2); ALBUMIN 4.3 g/dl (3.4-5.0); ANION GAP 20.1 (5-15); BILIRUBIN TOTAL 1.4 mg/dL (0.2-1.0); CALCIUM 8.5 mg/dL (8.5-10.1); EST CRCL DRUG DOSING (CG) 112.09 mL/min; ETHANOL BLOOD MEDICAL 0.1 gm% (0.00); POTASSIUM,K 3.1 mEq/L (3.5-5.1); PROTEIN TOTAL,TP 8.2 g/dl (6.4-8.2); TSH 2.412 uIU/mL (0.358-3.74)
[2023-12-18] MEDS: Metoclopramide 10 MG/2 ML SDV IVPUSH ONE (19:33)
[2023-12-18] MEDS: Dextrose 5%-Lactated Ringers 1,000 ML IV SCH (23:58)
[2023-12-18] MEDS: Potassium Chloride 20 MEQ Tab.ER PO ONE (23:58)
[2023-12-19 01:03] LABS: BARBITURATE SCREEN,URINE NEGATIVE (CUTOFF=200); BENZODIAZEPINES SCREEN,URINE PRESUMPTIVE POSITIVE (CUTOFF=150); BUPRENORPHINE SCREEN,URINE NEGATIVE (CUTOFF=10); METHADONE SCREEN, URINE NEGATIVE (CUT0FF=200); METHAMPHETAMINES SCREEN, URINE NEGATIVE (CUTOFF=500); OXYCODONE SCREEN,URINE NEGATIVE (CUT0FF=100); THC SCREEN,URINE 20 NG/ML NEGATIVE (CUTOFF=50)
[2023-12-19 01:08] LABS: AMPHETAMINES SCREEN, URINE NEGATIVE (CUTOFF=500)
[2023-12-19] MEDS: Dextrose 5%-Lactated Ringers 1,000 ML IV SCH (03:03)
[2023-12-19] MEDS: LORazepam 2 MG/ML SDV IVPUSH ONE ×2 (05:59→07:41)
[2023-12-19] MEDS: Metoprolol Tartrate 5 MG/5 ML SDV IVPUSH ONE (07:40)
== END 2023-12-19 08:30 ==
LOC: JD.ED 17:16
DX: F10.930 Alcohol use, unspecified with withdrawal, uncomplicated (principal); I10 Essential (primary) hypertension; E11.9 Type 2 diabetes mellitus without complications; Z90.49 Acquired absence of other specified parts of digestive tract; Z79.4 Long term (current) use of insulin; Z79.899 Other long term (current) drug therapy
CPT/HCPCS: 36415; 80053; 80143; 80179; 80306; 80307; 84443; 85025; 87635; 93005; 96361; 96374; 96375; 96376; 99285; A9270; J2060; J2765; J3490; J7030; J7121; U0002

== ENCOUNTER 2023-12-19 14:29 | Emergency (ER) | payer SELFPAY ==
[2023-12-19] MEDS: Metoprolol Tartrate 50 MG Tab PO ONE (16:04)
[2023-12-19] MEDS: LORazepam 1 MG Tab PO ONE ×2 (16:04→19:00)
[2023-12-19] MEDS: LORazepam 1 MG Tab ONE (17:28)
[2023-12-19] MEDS: cloNIDine 0.1 MG Tab PO ONE ×2 (17:37→19:00)
== END 2023-12-19 20:09 | disposition home or self-care (01) ==
LOC: JD.ED 14:29
DX: F10.931 Alcohol use, unspecified with withdrawal delirium (principal); I10 Essential (primary) hypertension; E11.9 Type 2 diabetes mellitus without complications; Z79.4 Long term (current) use of insulin; Z79.84 Long term (current) use of oral hypoglycemic drugs; Z79.899 Other long term (current) drug therapy
CPT/HCPCS: 99284; A9270

== ENCOUNTER 2023-12-20 17:30 | Emergency (ER) | payer SELFPAY ==
[2023-12-20] MEDS: Metoprolol Tartrate 50 MG Tab PO ONE (18:47)
[2023-12-20] MEDS: cloNIDine 0.1 MG Tab PO ONE ×2 (18:49→20:26)
[2023-12-20] MEDS: LORazepam 1 MG Tab PO ONE ×2 (18:49→20:55)
[2023-12-20 18:52] LABS: BASOPHILS PERCENT AUTO 0.7 % (0.0-1.0); EOSINOPHILS ABSOLUTE AUTO 0.1 K/mm3 (0.0-0.4); EOSINOPHILS PERCENT AUTO 3.1 % (0.0-6.0); HEMATOCRIT 38.3 % (42.0-52.0); HEMOGLOBIN 13.4 gm/dl (14.0-18.0); IMMATURE GRAN ABSOLUTE AUTO 0.04 K/mm3 (0.00-0.05); IMMATURE GRAN PERCENT AUTO 0.9 % (0.0-0.4); LYMPHOCYTES ABSOLUTE AUTO 1.2 K/mm3 (1.0-4.8); MEAN CORPUSCULAR HEMOGLOBIN 31.8 pg (28.0-32.0); MEAN CORPUSCULAR VOLUME 90.8 fl (83.0-99.0); MEAN PLATELET VOLUME 10.4 fl (9.4-12.4); MONOCYTES ABSOLUTE AUTO 0.5 K/mm3 (0.0-0.8); MONOCYTES PERCENT AUTO 10.1 % (0.0-8.0); NEUTROPHILS ABSOLUTE AUTO 2.7 K/mm3 (1.8-7.7); NEUTROPHILS PERCENT AUTO 58.2 % (41.0-71.0); PLATELET COUNT,PLT 116 K/mm3 (150-400); RED BLOOD CELL COUNT 4.22 M/mm3 (4.52-5.90); WHITE BLOOD CELL COUNT,WBC 4.55 K/mm3 (3.9-11.3)
[2023-12-20 19:16] LABS: A/G RATIO 1.1 (1-2); ALBUMIN 3.7 g/dl (3.4-5.0); ANION GAP 11.3 (5-15); BILIRUBIN TOTAL 0.9 mg/dL (0.2-1.0); BUN/CREATININE RATIO 5.5 (14-18); CALCIUM 10.4 mg/dL (8.5-10.1); CREATININE 1.1 mg/dL (0.7-1.3); EST CRCL DRUG DOSING (CG) 101.9 mL/min; POTASSIUM,K 3.3 mEq/L (3.5-5.1); PROTEIN TOTAL,TP 7.2 g/dl (6.4-8.2)
[2023-12-20] MEDS: hydrALAZINE 20 MG/ML SDV IM ONE (22:06)
== END 2023-12-20 23:50 | disposition home or self-care (01) ==
LOC: JD.ED 17:30
DX: F10.930 Alcohol use, unspecified with withdrawal, uncomplicated (principal); I10 Essential (primary) hypertension; E11.9 Type 2 diabetes mellitus without complications; Z90.49 Acquired absence of other specified parts of digestive tract; Z79.899 Other long term (current) drug therapy
CPT/HCPCS: 36415; 80053; 82947; 85025; 96372; 99283; A9270; J0360

== ENCOUNTER 2023-12-21 22:10 | Emergency (ER) | payer SELFPAY ==
[2023-12-21] MEDS: Diltiazem 25 MG/5 ML SDV IVPUSH ONE (22:43)
[2023-12-21] MEDS: hydrALAZINE 20 MG/ML SDV IVPUSH ONE (22:43)
[2023-12-21] MEDS: LORazepam 2 MG/ML SDV IVPUSH ONE (22:43)
[2023-12-21] MEDS: Sodium Chloride 0.9% 10 ML Syringe FLUSH PRN (22:43)
== END 2023-12-22 00:44 ==
LOC: JD.ED 22:10
DX: I10 Essential (primary) hypertension (principal); E11.9 Type 2 diabetes mellitus without complications; Z90.49 Acquired absence of other specified parts of digestive tract; Z79.899 Other long term (current) drug therapy
CPT/HCPCS: 96374; 96375; 99284; J0360; J2060; J3490

== ENCOUNTER 2024-05-10 20:43 | Emergency (ER) | payer BC ==
[2024-05-10 21:07] LABS: HEMATOCRIT 53.1 % (42.0-52.0); MEAN CORPUSCULAR HEMOGLOBIN 27.6 pg (28.0-32.0); MEAN CORPUSCULAR HGB CONC 33.9 g/dl (32.0-36.0); MEAN CORPUSCULAR VOLUME 81.4 fl (83.0-99.0); MEAN PLATELET VOLUME 8.9 fl (9.4-12.4); PLATELET COUNT,PLT 376 K/mm3 (150-400); RED BLOOD CELL COUNT 6.52 M/mm3 (4.52-5.90); WHITE BLOOD CELL COUNT,WBC 11.97 K/mm3 (3.9-11.3)
[2024-05-10 21:23] LABS: BARBITURATE SCREEN,URINE NEGATIVE (CUTOFF=200); BENZODIAZEPINES SCREEN,URINE NEGATIVE (CUTOFF=150); BUPRENORPHINE SCREEN,URINE NEGATIVE (CUTOFF=10); METHADONE SCREEN, URINE NEGATIVE (CUT0FF=200); METHAMPHETAMINES SCREEN, URINE NEGATIVE (CUTOFF=500); OXYCODONE SCREEN,URINE NEGATIVE (CUT0FF=100); THC SCREEN,URINE 20 NG/ML NEGATIVE (CUTOFF=50)
[2024-05-10 21:25] LABS: BAND PERCENT MAN 0 % (0-10); BASOPHILS PERCENT MAN 0 (0.2-1.2); EOSINOPHILS PERCENT MAN 0 % (0.8-7.0); LYMPHOCYTES % ATYPICAL MANUAL 0 %; LYMPHOCYTES PERCENT MAN 26 % (20-40); MONOCYTES PERCENT MAN 1 % (2-10)
[2024-05-10 21:27] LABS: MICROCYTOSIS 1+ SLIGHT
[2024-05-10 21:28] LABS: PLATELET COUNT ESTIMATE ADEQUATE
[2024-05-10 21:29] LABS: AMPHETAMINES SCREEN, URINE NEGATIVE (CUTOFF=500)
[2024-05-10 21:38] LABS: ALBUMIN 4.2 g/dl (3.4-5.0); ANION GAP 19.9 (5-15); BILIRUBIN TOTAL 0.6 mg/dL (0.2-1.0); BUN/CREATININE RATIO 11.7 (14-18); CREATININE 1.2 mg/dL (0.7-1.3); EST CRCL DRUG DOSING (CG) 93.41 mL/min; ETHANOL BLOOD MEDICAL 0.33 gm% (0.00); POTASSIUM,K 3.9 mEq/L (3.5-5.1); PROTEIN TOTAL,TP 8.6 g/dl (6.4-8.2); TSH 2.545 uIU/mL (0.358-3.74)
[2024-05-10] MEDS: Sodium Chloride 0.9% 1,000 ML IV STA ×2 (21:45→22:48)
[2024-05-10] MEDS: Ondansetron 4 MG/2 ML SDV IVPUSH ONE (22:02)
[2024-05-10] MEDS: LORazepam 2 MG/ML SDV IVPUSH ONE (23:52)
[2024-05-11] MEDS: Sodium Chloride 0.9% 1,000 ML IV ONE (03:56)
[2024-05-11] MEDS: LORazepam 2 MG/ML SDV IVPUSH ONE (04:27)
[2024-05-11] MEDS: Pantoprazole 40 MG Vial IVPUSH ONE (04:37)
== END 2024-05-11 06:58 | disposition home or self-care (01) ==
LOC: JD.ED 20:43
DX: F10.10 Alcohol abuse, uncomplicated (principal); I10 Essential (primary) hypertension; E11.9 Type 2 diabetes mellitus without complications; E66.9 Obesity, unspecified; Z86.16 Personal history of COVID-19; Z79.899 Other long term (current) drug therapy; Z68.32 Body mass index [BMI] 32.0-32.9, adult
CPT/HCPCS: 36415; 80053; 80143; 80179; 80306; 80307; 84443; 85007; 85027; 93005; 96361; 96374; 96375; 96376; 99283; 99284-25; J2060; J2405; J2470; J7030